=== PATIENT | male | born 1945 | race African-American/Black ===

== ENCOUNTER 2018-02-07 17:14 | Inpatient (IN) | payer MEDICARE, MEDICAID ==
[~2018-02-07] VITALS: Ht 182.9 cm; Wt 68.0 kg
[~2018-02-07 17:14] MED LIST: ATROPINE SULFAT15 ML OP; BRIMONIDINE TART5 ML LEFT EYE; COMBIGAN EYE DRO5 ML OP; COSOPT EYE DROP10 M1 OP; FOLIC ACID1 MG ORAL; LANTUS SOL100 UNIT/1 SUBQ; LISINOPRIL20 MG ORAL; METFORMIN HCL500 M1 ORAL; NEOMYCIN-POLY-7.5 M1 OP; NOVOLOG100 UNIT/3 SUBQ; OMEPRAZOLE20 M2 ORAL; TRAMADOL HCL50 MG ORAL
--- NOTE | 2018-02-07 17:24 | Emergency Room Report ---
History of Present Illness General Chief Complaint: Dyspnea/Respdistress Source: Patient, EMS Present Illness HPI 72-year-old male, unknown past medical history with the exception of recurrent chronic smoker, brought by EMS. EMS states that patient was found outside the half-way where his brother is residing. Patient was reportedly altered however EMS states that upon arrival patient was not altered. Patient found to have a cough. Also found to have high blood sugar and right wrist swelling. Patient is currently awake and alert, oriented 3 however is not providing much history. States that he hit his hand a while ago but does not know when. Also has had a terrible cough will not give details Allergies: Coded Allergies: NO KNOWN ALLERGIES (Unverified Allergy, Unknown, 02/07/18) Patient History Past Medical History: see triage record Past Surgical History: none Pertinent Family History: none Reviewed Nursing Documentation: PMH: Agreed; PSxH: Agreed Nursing Documentation-PMH Hx Hypertension: Yes Hx Diabetes: Yes Hx Cancer: No Hx Gastrointestinal Problems: No Hx Neurological Problems: No Review of Systems All Other Systems: negative except mentioned in HPI Physical Exam Vital Signs Date Time Temp Pulse Resp B/P (MAP) Pulse Ox O2 Delivery O2 Flow Rate FiO2 02/07/18 17:11 100.2 112 20 133/78 86 Room Air 100.2 Sp02 EP Interpretation: reviewed, normal General Appearance: alert, moderate distress, other - disheveled Head: normocephalic, atraumatic Eyes: bilateral eye normal inspection, bilateral eye PERRL, bilateral eye EOMI ENT: normal ENT inspection, normal pharynx, normal voice, moist mucus membranes Neck: normal inspection, full range of motion, supple Respiratory: respiratory distress, wheezing, expiration Cardiovascular #1: no edema, tachycardia Cardiovascular #2: 2+ radial (R), 2+ radial (L) Gastrointestinal: normal inspection, non tender, soft, non-distended, no guarding Genitourinary: no CVA tenderness Musculoskeletal: other - Right wrist with edema and erythema, has full range of motion, blanching, warm, tender to palpation Neurologic: oriented x3, other - moves all ext Psychiatric: other - poor historian/dementia Skin: normal inspection, normal color, no rash, warm/dry, well hydrated, normal turgor Medical Decision Making Diagnostic Impression: Primary Impression: Respiratory distress Additional Impressions: COPD (chronic obstructive pulmonary disease) Pneumonia Hyperglycemia Elevated troponin ER Course 72-year-old male found outside a half-way where his brother is residing, found to have a cough, right wrist swelling DDX: COPD exacerbation, ACS, pneumonia Right wrist contusion versus fracture Plan: IV access, cafeteria monitor, O2 nasal cannula, EKG, CXR obtain basic labs including blood gas, troponin, Duonebs, steroids, consider mag, X-ray right wrist and hand ER Course: Patient's respiratory status has been closely monitored in the ED. Patient has been treated with combivent x 3, steroids, antibiotics. IV mag sulfate patient repeatly refusing nebs, sleeping comfortably Dr Caban called, known patient to her, to admit to Dr Dixon and she will follow Disposition: Patient will be admitted to telemetry D/W hospitalist Dr Dixon Please note that this Emergency Department Report was dictated using [id number] organ assembler and checker technology software, occasionally this can lead to erroneous entry secondary to interpretation by the dictation equipment. EKG Diagnostic Results EP Interpretation: Yes Rate: Tachycardic Rhythm: NSR ST Segments: No acute changes ASA given to patient: No Rhythm Strip EP Interpretation: Yes Rate: 111 Rhythm: NSR, no PVCs, no ectopy Chest X-ray CXR: Ordered: Yes 1 view Indication: SOB EP interpretation: Yes Interpretation: R infiltrate Impression: R infiltrate Electronically signed by David Garcia MD Xray: Right wrist 3 view Indication: Pain EP Interpretation: Yes Interpretation: No dislocation, no soft tissue swelling, no fractures Impression: No acute disease Electronically signed by David Garcia MD Xray: Right hand 3 view Indication: Pain EP Interpretation: Yes Interpretation: No dislocation, no soft tissue swelling, no fractures Impression: No acute disease Electronically signed by David Garcia MD Laboratory Tests Test 02/07/18 17:16 02/07/18 18:00 White Blood Count 10.0 K/UL (4.8-10.8) Red Blood Count 3.22 M/UL (4.70-6.10) L Hemoglobin 7.7 G/DL (14.2-18.0) L Hematocrit 26.7 % (42.0-52.0) L Mean Corpuscular Volume 83 FL (80-99) Mean Corpuscular Hemoglobin 24.0 PG (27.0-31.0) L Mean Corpuscular Hemoglobin Concent 28.9 G/DL (32.0-36.0) L Red Cell Distribution Width 17.7 % (11.6-14.8) H Platelet Count 259 K/UL (150-450) Mean Platelet Volume 7.3 FL (6.5-10.1) Neutrophils (%) (Auto) 81.0 % (45.0-75.0) H Lymphocytes (%) (Auto) 13.9 % (20.0-45.0) L Monocytes (%) (Auto) 4.4 % (1.0-10.0) Eosinophils (%) (Auto) 0.2 % (0.0-3.0) Basophils (%) (Auto) 0.5 % (0.0-2.0) Arterial Blood pH 7.280 (7.350-7.450) Arterial Blood Partial Pressure CO2 66.0 mmHg (35.0-45.0) *H Arterial Blood Partial Pressure O2 86.1 mmHg (75.0-100.0) Arterial Blood HCO3 30.4 mmol/L (22.0-26.0) H Arterial Blood Oxygen Saturation 94.1 % (92.0-98.0) Arterial Blood Base Excess 2.8 South Test Positive Sodium Level 141 MMOL/L (136-145) Potassium Level 4.5 MMOL/L (3.5-5.1) Chloride Level 104 MMOL/L (98-107) Carbon Dioxide Level 29 MMOL/L (21-32) Anion Gap 8 mmol/L (5-15) Blood Urea Nitrogen 36 mg/dL (7-18) H Creatinine 1.4 MG/DL (0.55-1.30) H Estimate Glomerular Filtration Rate mL/min (>60) Glucose Level 226 MG/DL (74-106) H Lactic Acid Level 2.50 mmol/L (0.66-2.22) H Calcium Level 9.0 MG/DL (8.5-10.1) Total Bilirubin 0.3 MG/DL (0.2-1.0) Aspartate Amino Transferase (AST) 152 U/L (15-37) H Alanine Aminotransferase (ALT) 177 U/L (12-78) H Alkaline Phosphatase 130 U/L (46-116) H Troponin I 0.858 ng/mL (0.000-0.056) Pro-B-Type Natriuretic Peptide 9498 pg/mL (0-125) H Total Protein 7.8 G/DL (6.4-8.2) Albumin 3.0 G/DL (3.4-5.0) L Globulin 4.8 g/dL Albumin/Globulin Ratio 0.6 (1.0-2.7) L Acetone Level Negative (NEGATIVE) Urine Color Yellow Urine Appearance Slightly cloudy Urine pH 5 (4.5-8.0) Urine Specific [place] 1.020 (1.005-1.035) Urine Protein 4+ (NEGATIVE) H Urine Glucose (UA) Negative (NEGATIVE) Urine Ketones Negative (NEGATIVE) Urine Occult Blood 2+ (NEGATIVE) H Urine Nitrite Negative (NEGATIVE) Urine Bilirubin Negative (NEGATIVE) Urine Urobilinogen 1 MG/DL (0.0-1.0) H Urine Leukocyte Esterase 1+ (NEGATIVE) H Urine RBC 0-2 /HPF (0 - 0) H Urine WBC 0-2 /HPF (0 - 0) Urine Squamous Epithelial Cells Occasional /LPF Urine Bacteria Moderate /HPF (NONE) H Last Vital Signs Date Time Temp Pulse Resp B/P (MAP) Pulse Ox O2 Delivery O2 Flow Rate FiO2 02/07/18 17:11 100.2 112 20 133/78 86 Room Air 100.2 Disposition: ADMITTED INPATIENT Condition: Serious David Gracia M.D. Feb 07, 2018 17:23
[2018-02-07] MEDS ORDERED: Solu-MEDROL 125mg Inj IVP ONE (17:30)
[2018-02-07 17:52] LABS: HEMATOCRIT 26.7 % (42.0-52.0); HEMOGLOBIN 7.7 G/DL (14.2-18.0); MEAN CORPUSCULAR VOLUME 83 FL (80-99); PLATELET COUNT 259 K/UL (150-450); RED BLOOD COUNT 3.22 M/UL (4.70-6.10); RED CELL DISTRIBUTION WIDTH 17.7 % (11.6-14.8)
[2018-02-07] MEDS: Albuterol ud Inhalation HHN SCH ×3 (17:58→19:43)
[2018-02-07] MEDS: Ipratropium 0.02% Inh Soln 2.5ml UD HHN SCH ×3 (17:58→19:43)
[2018-02-07 18:00] VITALS: BP 130/65
[2018-02-07 18:00] LABS: LYMPHOCYTES % (AUTO) 13.9 % (20.0-45.0)
[2018-02-07 18:01] LABS: BASOPHILS % (AUTO) 0.5 % (0.0-2.0); EOSINOPHILS % (AUTO) 0.2 % (0.0-3.0); MONOCYTES % (AUTO) 4.4 % (1.0-10.0)
[2018-02-07 18:04] LABS: ANION GAP 8 mmol/L (5-15); BLOOD UREA NITROGEN 36 mg/dL (7-18); CARBON DIOXIDE 29 MMOL/L (21-32); CHLORIDE 104 MMOL/L (98-107); CREATININE 1.4 MG/DL (0.55-1.30); POTASSIUM 4.5 MMOL/L (3.5-5.1); SODIUM 141 MMOL/L (136-145)
[2018-02-07] MEDS ORDERED: Nitroglycerin Subl 0.4mg tab SL PRN (18:15)
[2018-02-07] MEDS ORDERED: LORazepam Inj 2mg/ml 1ml IV PRN (18:15)
[2018-02-07] MEDS ORDERED: Promethazine/Codeine 5ml UD ORAL PRN (18:15)
[2018-02-07] MEDS ORDERED: Morphine Sulfate 4mg/ml Inj IVP PRN (18:15)
[2018-02-07] MEDS ORDERED: Albuterol/Ipratropium 3ml neb HHN PRN (18:15)
[2018-02-07 18:18] LABS: ALANINE AMINOTRANSFERASE 177 U/L (12-78); ALBUMIN/GLOBULIN RATIO 0.6 (1.0-2.7); ALKALINE PHOSPHATASE 130 U/L (46-116); ASPARTATE AMINO TRANSFERASE 152 U/L (15-37); BILIRUBIN,TOTAL 0.3 MG/DL (0.2-1.0)
[2018-02-07 18:27] LABS: APPEARANCE,URINE SLIGHTLY CLOUDY; BILIRUBIN, URINE NEGATIVE (NEGATIVE); GLUCOSE, URINE (UA) NEGATIVE (NEGATIVE); KETONES,URINE NEGATIVE (NEGATIVE); LEUKOCYTE ESTERASE ,URINE 1+ (NEGATIVE); NITRITE,URINE NEGATIVE (NEGATIVE); PH,URINE 5 (4.5-8.0); PROTEIN,URINE 4+ (NEGATIVE); UROBILINOGEN,URINE 1 MG/DL (0.0-1.0)
[2018-02-07 18:29] LABS: COLOR,URINE YELLOW
[2018-02-07] MEDS ORDERED: Aspirin Baby 81mg ORAL ONE (19:00)
[2018-02-07 19:30] VITALS: BP 133/68
[2018-02-07 20:45] VITALS: BP 147/90
[2018-02-07] MEDS: Theophylline ER 100mg ORAL SCH (21:34)
[2018-02-07] MEDS: Heparin 5000 units/ml inj SUBQ SCH (21:38)
[2018-02-07] MEDS: NovoLOG Insulin Flexpen SUBQ SCH (21:39)
[2018-02-08] VITALS: BP 137/95
[2018-02-08] MEDS: Solu-MEDROL 125mg Inj IV SCH ×3 (00:03→11:35)
[2018-02-08 04:00] VITALS: BP 135/86
[2018-02-08] MEDS: NovoLOG Insulin Flexpen SUBQ SCH ×3 (06:13→16:30)
[2018-02-08] MEDS ORDERED: Lisinopril 20mg tab ORAL SCH (09:00)
[2018-02-08] MEDS: Heparin 5000 units/ml inj SUBQ SCH ×2 (09:00→09:08)
[2018-02-08 09:04] VITALS: BP 149/89
[2018-02-08 09:07] VITALS: BP 149/89
[2018-02-08] MEDS: Theophylline ER 100mg ORAL SCH (09:07)
--- NOTE | 2018-02-08 09:58 | Diagnostic Imaging Report ---
Indication: Pain Findings: 3 views of the right wrist were obtained. No acute fractures, malalignment, erosions or periostitis are identified. Soft tissues are unremarkable. Impression: No acute findings.
--- NOTE | 2018-02-08 09:59 | Diagnostic Imaging Report ---
Indication: pain Right hand pain Findings: 3 views of the right hand were obtained. Normal bony mineralization and alignment are demonstrated. No acute fractures, erosions, or periosteal reaction are seen. Soft tissues are unremarkable. Impression: No acute findings.
--- NOTE | 2018-02-08 09:59 | Diagnostic Imaging Report ---
Indication: Chest pain Comparison: None A single view chest radiograph was obtained. Findings: Suggestion of mild interstitial edema and centrally. Heart size is borderline enlarged. Bones are unremarkable. IMPRESSION: Query mild CHF
--- NOTE | 2018-02-08 12:37 | History and Physical ---
History of Present Illness General Date patient seen: Feb 08, 2018 Reason for Hospitalization: Dyspnea/Respdistress Present Illness HPI 72-year-old male, with hx of DM, HTN, psychiatric history, brought in by EMS. EMS states that patient was found outside the group home where his brother is residing. Patient was reportedly altered however EMS states that upon arrival patient was not altered. Patient found to have a cough. Also found to have high blood sugar and right wrist swelling. Allergies: Coded Allergies: NO KNOWN ALLERGIES (Unverified Allergy, Unknown, 02/07/18) Medication History Scheduled Atropine Sulfate (Atropine Sulfate), 5 ML OP BID, (Reported) Brimonidine Tartrate* (Alphagan*), 1 DROP LEFT EYE BID, (Reported) Brimonidine Tartrate/Timolol (Combigan Eye Drops), 5 ML OP BID, (Reported) Dorzolamide Hcl/Timolol Maleat (Cosopt Eye Drops), 10 ML OP BID, (Reported) Folic Acid* (Folic Acid*), 1 MG ORAL DAILY, (Reported) Insulin Aspart* (Novolog*), 8 UNITS SUBQ BEFORE MEALS, (Reported) Insulin Glargine (Lantus), 20 UNITS SUBQ BEDTIME, (Reported) Lisinopril (Lisinopril*), 20 MG ORAL DAILY, (Reported) Metformin Hcl* (Metformin Hcl*), 500 MG ORAL TID, (Reported) Neomycin/Polymyxin B Sulf/Hc (Orvzzcyr-Yviw-Eg Eye Drops), 5 ML OP BID, ( Reported) Omeprazole (Omeprazole), 20 MG ORAL DAILY, (Reported) Tramadol Hcl* (Ultram*), 50 MG ORAL Q6H, (Reported) Patient History Healthcare decision maker Resuscitation status Full Code Advanced Directive on File No Past Medical/Surgical History Past Medical/Surgical History: (1) COPD (chronic obstructive pulmonary disease) (2) Diabetes mellitus (3) Hypertension Review of Systems Respiratory: Reports: cough All Other Systems: negative except mentioned in HPI Physical Exam General Appearance: cachetic Lines, tubes and drains: peripheral HEENT: normocephalic, atraumatic Neck: non-tender, normal alignment Respiratory/Chest: chest wall non-tender, lungs clear Breasts: no masses Cardiovascular/Chest: normal peripheral pulses, normal rate Abdomen: normal bowel sounds, non tender Genitourinary/Rectal: normal genital exam, normal rectal exam Extremities: normal range of motion Last 24 Hour Vital Signs Date Time Temp Pulse Resp B/P (MAP) Pulse Ox O2 Delivery O2 Flow Rate FiO2 02/08/18 10:30 100 19 Nasal Cannula 2.0 28 02/08/18 09:07 149/89 02/08/18 09:04 97.9 102 20 149/89 96 Nasal Cannula 2.0 97.9 02/08/18 08:00 102 02/08/18 04:00 102 02/08/18 04:00 97.0 96 21 135/86 91 Nasal Cannula 2.0 97.0 02/08/18 00:00 97 02/08/18 00:00 97.0 97 21 137/95 95 Nasal Cannula 2.0 97.0 02/07/18 20:45 99.0 99 20 147/90 91 Nasal Cannula 2.0 99.0 02/07/18 20:43 101 02/07/18 20:20 100.2 101 19 130/65 100 Nasal Cannula 2.0 28 100.2 02/07/18 20:11 101 19 Nasal Cannula 2.0 28 02/07/18 20:10 102 19 100 Nasal Cannula 2.0 28 02/07/18 20:09 102 19 100 Nasal Cannula 2.0 28 02/07/18 20:09 102 19 100 Nasal Cannula 2.0 28 02/07/18 19:44 101 19 100 Nasal Cannula 2.0 28 02/07/18 19:41 100 19 100 Nasal Cannula 2.0 28 02/07/18 19:38 99 20 99 Nasal Cannula 2.0 28 02/07/18 19:30 99.8 105 21 133/68 98 Nasal Cannula 2.0 99.8 02/07/18 18:00 101 21 130/65 97 Nasal Cannula 2.0 02/07/18 17:29 Nasal Cannula 2.0 02/07/18 17:11 100.2 112 20 133/78 86 Room Air 100.2 Intake and Output 02/07/18 02/08/18 19:00 07:00 Intake Total 340 ml Output Total 100 ml 500 ml Balance -100 ml -160 ml IV Total 100 ml Other 240 ml Output Urine Total 100 ml 500 ml # Voids 1 2 Laboratory Tests Test 02/07/18 17:16 02/07/18 18:00 02/07/18 19:50 White Blood Count 10.0 K/UL (4.8-10.8) Red Blood Count 3.22 M/UL (4.70-6.10) L Hemoglobin 7.7 G/DL (14.2-18.0) L Hematocrit 26.7 % (42.0-52.0) L Mean Corpuscular Volume 83 FL (80-99) Mean Corpuscular Hemoglobin 24.0 PG (27.0-31.0) L Mean Corpuscular Hemoglobin Concent 28.9 G/DL (32.0-36.0) L Red Cell Distribution Width 17.7 % (11.6-14.8) H Platelet Count 259 K/UL (150-450) Mean Platelet Volume 7.3 FL (6.5-10.1) Neutrophils (%) (Auto) 81.0 % (45.0-75.0) H Lymphocytes (%) (Auto) 13.9 % (20.0-45.0) L Monocytes (%) (Auto) 4.4 % (1.0-10.0) Eosinophils (%) (Auto) 0.2 % (0.0-3.0) Basophils (%) (Auto) 0.5 % (0.0-2.0) Arterial Blood pH 7.280 (7.350-7.450) Arterial Blood Partial Pressure CO2 66.0 mmHg (35.0-45.0) *H Arterial Blood Partial Pressure O2 86.1 mmHg (75.0-100.0) Arterial Blood HCO3 30.4 mmol/L (22.0-26.0) H Arterial Blood Oxygen Saturation 94.1 % (92.0-98.0) Arterial Blood Base Excess 2.8 South Test Positive Sodium Level 141 MMOL/L (136-145) Potassium Level 4.5 MMOL/L (3.5-5.1) Chloride Level 104 MMOL/L (98-107) Carbon Dioxide Level 29 MMOL/L (21-32) Anion Gap 8 mmol/L (5-15) Blood Urea Nitrogen 36 mg/dL (7-18) H Creatinine 1.4 MG/DL (0.55-1.30) H Estimat Glomerular Filtration Rate mL/min (>60) Glucose Level 226 MG/DL (74-106) H Lactic Acid Level 2.50 mmol/L (0.66-2.22) H 0.80 mmol/L (0.66-2.22) Calcium Level 9.0 MG/DL (8.5-10.1) Total Bilirubin 0.3 MG/DL (0.2-1.0) Aspartate Amino Transf (AST/SGOT) 152 U/L (15-37) H Alanine Aminotransferase (ALT/SGPT) 177 U/L (12-78) H Alkaline Phosphatase 130 U/L (46-116) H Troponin I 0.858 ng/mL (0.000-0.056) Pro-B-Type Natriuretic Peptide 9498 pg/mL (0-125) H Total Protein 7.8 G/DL (6.4-8.2) Albumin 3.0 G/DL (3.4-5.0) L Globulin 4.8 g/dL Albumin/Globulin Ratio 0.6 (1.0-2.7) L Acetone Level Negative (NEGATIVE) Urine Color Yellow Urine Appearance Slightly cloudy Urine pH 5 (4.5-8.0) Urine Specific [place] 1.020 (1.005-1.035) Urine Protein 4+ (NEGATIVE) H Urine Glucose (UA) Negative (NEGATIVE) Urine Ketones Negative (NEGATIVE) Urine Occult Blood 2+ (NEGATIVE) H Urine Nitrite Negative (NEGATIVE) Urine Bilirubin Negative (NEGATIVE) Urine Urobilinogen 1 MG/DL (0.0-1.0) H Urine Leukocyte Esterase 1+ (NEGATIVE) H Urine RBC 0-2 /HPF (0 - 0) H Urine WBC 0-2 /HPF (0 - 0) Urine Squamous Epithelial Cells Occasional /LPF Urine Bacteria Moderate /HPF (NONE) H Microbiology Date/Time Source Procedure Growth Status 02/07/18 18:00 Urine,Clean Catch Urine Culture - Preliminary NO GROWTH Resulted Height (Feet): 6 Height (Inches): 0.00 Weight (Pounds): 150 Medications Current Medications Medications (Trade) Dose Ordered Sig/Alison Route PRN Reason Start Time Stop Time Status Last Admin Dose Admin Acetaminophen (Tylenol) 650 mg Q4H PRN ORAL fever 02/07/18 18:15 03/09/18 18:14 Albuterol/ Ipratropium (Albuterol/ Ipratropium) 3 ml Q4H PRN HHN dyspnea 02/07/18 18:15 02/12/18 18:14 Atropine Sulfate (Atropine Opth Maren) 1 drop BID BOTH EYES 02/07/18 21:00 03/09/18 20:59 02/07/18 21:43 Clonidine HCl (Catapres Tab) 0.1 mg Q4H PRN ORAL sbp more than 160 02/07/18 18:15 03/09/18 18:14 Dextrose (Dextrose 50%) 25 ml STAT PRN IV Hypoglycemia 02/07/18 18:15 03/09/18 18:14 Dextrose (Dextrose 50%) 50 ml STAT PRN IV Hypoglycemia 02/07/18 18:15 03/09/18 18:14 Heparin Sodium (Porcine) (Heparin 5000 units/ml) 5,000 units EVERY 12 HOURS SUBQ 02/07/18 21:00 03/09/18 20:59 02/07/18 21:38 Insulin Aspart (NovoLOG) BEFORE MEALS AND HS SUBQ 02/07/18 21:00 03/09/18 20:59 02/08/18 11:36 Lisinopril (Prinivil) 20 mg DAILY ORAL 02/08/18 09:00 03/10/18 08:59 02/08/18 09:07 Lorazepam (Ativan 2mg/ml 1ml) 0.5 mg Q4H PRN IV For Anxiety 02/07/18 18:15 02/14/18 18:14 Methylprednisolone Sodium Succinate (Solu-MEDROL) 60 mg EVERY 6 HOURS IV 02/08/18 00:00 03/10/18 00:00 02/08/18 11:35 Morphine Sulfate (Morphine Sulfate) 2 mg Q4H PRN IVP severe pain 7-10 02/07/18 18:15 02/14/18 18:14 Nitroglycerin (Ntg) 0.4 mg Q5M X 3 DOSES PRN SL Prn Chest Pain 02/07/18 18:15 03/09/18 18:14 Ondansetron HCl (Zofran) 4 mg Q6H PRN IVP Nausea & Vomiting 02/07/18 18:15 03/09/18 18:14 Promethazine HCl/ Codeine (Phenergan with Codeine) 5 ml Q6H PRN ORAL cough 02/07/18 18:15 03/09/18 18:14 02/08/18 04:13 Temazepam (Restoril) 15 mg HSPRN PRN ORAL Insomnia 02/07/18 18:15 02/14/18 18:14 Theophylline ([place]) 100 mg EVERY 12 HOURS ORAL 02/07/18 21:00 03/09/18 20:59 02/08/18 09:07 Assessment/Plan Problem List: (1) Acute respiratory failure ICD Codes: J96.00 - Acute respiratory failure, unspecified whether with hypoxia or hypercapnia SNOMED: 54462451 (2) COPD exacerbation ICD Codes: J44.1 - Chronic obstructive pulmonary disease with (acute) exacerbation SNOMED: 071475549 (3) Hyperglycemia ICD Codes: R73.9 - Hyperglycemia, unspecified SNOMED: 69062405 (4) Hypertension ICD Codes: I10 - Essential (primary) hypertension SNOMED: 80094800 (5) Diabetes mellitus ICD Codes: E11.9 - Type 2 diabetes mellitus without complications SNOMED: 90975721 Assessment/Plan respiratory treatment iv abx. iv sterids check sputum chest PT sliding scale diabetic diet Josue Dixon MD Feb 08, 2018 12:37
--- NOTE | 2018-02-08 18:50 | Consultation ---
History of Present Illness General Date patient seen: Feb 08, 2018 Chief Complaint: Dyspnea/Respdistress Present Illness HPI 72-year-old male, with hx of DM, HTN, schizophrenia, brought in by EMS. the pt has poor insight and was somewhat uncooperative. the pt has poor cognition. I am well familiar with this pt and he has dementia in addition to his other medical issues. the pt has history of noncompliance. the pt is unable to be engaged and answer the questions. the pt is unable to appreciate nor process the info was given to him. Allergies: Coded Allergies: NO KNOWN ALLERGIES (Unverified Allergy, Unknown, 02/07/18) Medication History Scheduled Atropine Sulfate (Atropine Sulfate), 5 ML OP BID, (Reported) Brimonidine Tartrate* (Alphagan*), 1 DROP LEFT EYE BID, (Reported) Brimonidine Tartrate/Timolol (Combigan Eye Drops), 5 ML OP BID, (Reported) Dorzolamide Hcl/Timolol Maleat (Cosopt Eye Drops), 10 ML OP BID, (Reported) Folic Acid* (Folic Acid*), 1 MG ORAL DAILY, (Reported) Insulin Aspart* (Novolog*), 8 UNITS SUBQ BEFORE MEALS, (Reported) Insulin Glargine (Lantus), 20 UNITS SUBQ BEDTIME, (Reported) Lisinopril (Lisinopril*), 20 MG ORAL DAILY, (Reported) Metformin Hcl* (Metformin Hcl*), 500 MG ORAL TID, (Reported) Neomycin/Polymyxin B Sulf/Hc (Erauyxdn-Gflc-Zi Eye Drops), 5 ML OP BID, ( Reported) Omeprazole (Omeprazole), 20 MG ORAL DAILY, (Reported) Tramadol Hcl* (Ultram*), 50 MG ORAL Q6H, (Reported) Patient History Limited by: medical condition History Provided By: Patient, Medical Record, PMD Healthcare decision maker Resuscitation status Full Code Advanced Directive on File No Past Medical/Surgical History Past Medical/Surgical History: (1) Diabetes mellitus (2) Hypertension (3) Acute respiratory failure (4) COPD exacerbation (5) Severe anemia (6) ATN (acute tubular necrosis) Review of Systems Psychiatric: Reports: prior hx, anxiety, depressed feelings, emotional problems Physical Exam General Appearance: no apparent distress, alert Neurologic: responsive, depressed affect Last 24 Hour Vital Signs Date Time Temp Pulse Resp B/P (MAP) Pulse Ox O2 Delivery O2 Flow Rate FiO2 02/08/18 12:00 107 02/08/18 10:30 100 19 Nasal Cannula 2.0 28 02/08/18 09:07 149/89 02/08/18 09:04 97.9 102 20 149/89 96 Nasal Cannula 2.0 97.9 02/08/18 08:00 102 02/08/18 04:00 102 02/08/18 04:00 97.0 96 21 135/86 91 Nasal Cannula 2.0 97.0 02/08/18 00:00 97 02/08/18 00:00 97.0 97 21 137/95 95 Nasal Cannula 2.0 97.0 02/07/18 20:45 99.0 99 20 147/90 91 Nasal Cannula 2.0 99.0 02/07/18 20:43 101 02/07/18 20:20 100.2 101 19 130/65 100 Nasal Cannula 2.0 28 100.2 02/07/18 20:11 101 19 Nasal Cannula 2.0 28 02/07/18 20:10 102 19 100 Nasal Cannula 2.0 28 02/07/18 20:09 102 19 100 Nasal Cannula 2.0 28 02/07/18 20:09 102 19 100 Nasal Cannula 2.0 28 02/07/18 19:44 101 19 100 Nasal Cannula 2.0 28 02/07/18 19:41 100 19 100 Nasal Cannula 2.0 28 02/07/18 19:38 99 20 99 Nasal Cannula 2.0 28 02/07/18 19:30 99.8 105 21 133/68 98 Nasal Cannula 2.0 99.8 Intake and Output 02/07/18 02/08/18 19:00 07:00 Intake Total 340 ml Output Total 100 ml 500 ml Balance -100 ml -160 ml IV Total 100 ml Other 240 ml Output Urine Total 100 ml 500 ml # Voids 1 2 Laboratory Tests Test 02/07/18 19:50 Lactic Acid Level 0.80 mmol/L (0.66-2.22) Height (Feet): 6 Height (Inches): 0.00 Weight (Pounds): 150 Assessment/Plan Assessment/Plan schizophrenia dementia the pt lacks capacity to leave ama. the pt will be restarted on meds the pt needs placement. Calvin Caban M.D. Feb 08, 2018 18:50
--- NOTE | 2018-02-09 10:37 | Discharge Summary ---
Discharge Summary Discharge Summary Discharge Summary DATE OF ADMISSION: 02/07/2018 DATE OF SIGNING AGAINST MEDICAL ADVISE: 02/08/2018 REASON FOR ADMISSION: 72 years old male with a history of diabetes,hypertension , active smoker, COPD , psychiatric history was brought by paramedics. Patient was found outside of the nursing facility, where his brother resides. Patient apparently was confused per report, however paramedics stated that upon arrival patient was not confused. Patient was found to have cough. Patient also found to have hyperglycemia. Patient complained of right wrist swelling. Patient had low- grade fever- 100.2 tachycardia- 112, EKG revealed sinus tachycardia, no acute ischemic changes. Pulse oximetry was only 86% on room air. Patient was placed on supplemental oxygen to keep pulse oximetry above 92%. Chest X-ray revealed borderline enlarged heart. Suggestion of mild interstitial edema, likely mild CHF. Right wrist x-ray revealed no acute findings. Right hand x-ray revealed no acute findings. No leukocytosis. with +4 protein and moderate bacteria, but no pyuria. Glucose -226. Elevated liver enzymes. Patient was admitted for acute respiratory failure, COPD exacerbation, elevated troponin , hyperglycemia, hypertension, diabetes. CONSULTANTS: psychiatrist [facility]SE: Patient admitted to monitored floor. Supplemental oxygen provided to keep pulse oximetry above 92%. Pulmonary toilet with bronchodilator and chest physiotherapy. Patient was started on intravenous steroids. Trial of theophylline was started. Antitussive provided as needed. Patient was started on empiric antibiotics. Sputum culture was ordered. Patient was counseled on smoking cessation. Patient declined Nicotine patch. Patient was started on diabetic diet . Blood sugar was managed with sliding scale of insulin. DVT prophylaxis provided. Blood pressure was managed with BR[place] inhibitor. Psychiatric evaluation was requested. Psychiatrist diagnosed patient with schizophrenia and dementia. Psychiatrist optimized psychiatric medication regimen. Patient refused all care, including refusal of medication. Patient decided to leave against medical advice. The risk and consequences of signing AGAINST MEDICAL ADVICE were discussed with patient in detail. Patient verbalized understanding, nevertheless signed AMA form and left. FINAL DIAGNOSES: Acute respiratory failure. COPD exacerbation. Hyperglycemia. Hypertension. Diabetes. Schizophrenia. Dementia. Elevated troponin I have been assigned to dictate discharge summary for this account. I was not involved in the patient's management. Carmen Wick NP ([place]) Feb 09, 2018 10:37
== END 2018-02-08 16:21 | disposition left against medical advice (07) | DRG 189 ==
LOC: EDBD 17:14 → EMR 18:03 → 2E 18:07 → EDBEDREQ 18:16 → 2E 02-08 04:54
DX: J96.00 Acute respiratory failure, unspecified whether with hypoxia or hypercapnia (principal); J44.1 Chronic obstructive pulmonary disease with (acute) exacerbation; E11.65 Type 2 diabetes mellitus with hyperglycemia; I10 Essential (primary) hypertension; F20.9 Schizophrenia, unspecified; F03.90 Unspecified dementia, unspecified severity, without behavioral disturbance, psychotic disturbance, mood disturbance, and anxiety; R74.8 Abnormal levels of other serum enzymes; Z53.20 Procedure and treatment not carried out because of patient's decision for unspecified reasons; S69.90XA Unspecified injury of unspecified wrist, hand and finger(s), initial encounter; X58.XXXA Exposure to other specified factors, initial encounter
CPT/HCPCS: 36415; 36600; 71045; 80053; 81003; 82009; 82803; 82962; 83605; 83880; 84484; 85025; 87040; 87081; 87086; 93005; 94640; 94664; J1815

== ENCOUNTER 2018-04-10 14:25 | Inpatient (IN) | payer MEDICARE, MEDICAID ==
[~2018-04-10] VITALS: Ht 182.9 cm
--- NOTE | 2018-04-10 14:36 | Emergency Room Report ---
History of Present Illness General Chief Complaint: Behavioral Complaint Source: EMS Present Illness HPI Patient is brought in by EMS. He has a history of COPD. [facility] at the [facility] facility. His oxygen saturation was 88% when EMS arrived. They placed him on oxygen his oxygen saturation went up to 95%. The patient is only response to his name at this time. Aside from records that came with the patient no further history is available at this time. Allergies: Coded Allergies: NO KNOWN ALLERGIES (Unverified Allergy, Unknown, 02/07/18) Patient History Limited by: medical condition Past Medical History: see triage record Social History: Reports: smoking - prior, alcohol use Social History Narrative [facility] facility Reviewed Nursing Documentation: PMH: Agreed; PSxH: Agreed Nursing Documentation-PMH Hx Cardiac Problems: Yes - CHF Hx Hypertension: Yes Hx COPD: Yes Hx Diabetes: Yes Hx Cancer: No Hx Gastrointestinal Problems: No Hx Neurological Problems: No Review of Systems All Other Systems: limited Physical Exam Vital Signs Date Time Temp Pulse Resp B/P (MAP) Pulse Ox O2 Delivery O2 Flow Rate FiO2 04/10/18 14:21 97.6 95 18 121/70 95 Nasal Cannula 2.0 97.5 Sp02 EP Interpretation: reviewed, abnormal - interpreted by me as low General Appearance: lethargic, other - Response to pain Head: normocephalic Eyes: bilateral eye PERRL ENT: moist mucus membranes - poor dentition Neck: supple Respiratory: decreased breath sounds, wheezing, expiration, other - Decreased tidal volume Cardiovascular #1: regular rate, rhythm Cardiovascular #2: 2+ radial (L) Gastrointestinal: non tender, soft, decreased bowel sounds, scaphoid Genitourinary: no CVA tenderness Musculoskeletal: back normal, digits/nails normal Neurologic: responsive - Today, motor strength/tone normal, sensory intact, motor weakness Psychiatric: depressed affect Skin: warm/dry, cyanosis Medical Decision Making Diagnostic Impression: Primary Impression: Behavioral change Additional Impressions: Elevated troponin Hypoxia CHF (congestive heart failure) Qualified Codes: I50.43 - Acute on chronic combined systolic (congestive) and diastolic (congestive) heart failure ER Course Patient presents with altered mentation and hypoxia. Differential includes respiratory failure, pneumonia, COPD exacerbation amongst others. Apparently he had behavioral issues and was given Ativan at the [facility]. This may be contributing to his respiratory status. Evaluation will be with EKG , chest x-ray and labs including blood cultures and lactate. He'll be treated with albuterol and Atrovent and Solu-Medrol. We will be assessing his respiratory status with a blood gas. Patient somewhat more alert with observation. Refusing breathing treatment. EKG without injury. CXR with CHF vs infiltrates. Called with + troponin. Aspirin ordered. Improved mentation. Still lethargic and not following commands. Admit SDU Dr. Dixon. Laboratory Tests Test 04/10/18 14:31 04/10/18 15:06 Arterial Blood pH 7.350 (7.350-7.450) Arterial Blood Partial Pressure CO2 49.9 mmHg (35.0-45.0) H Arterial Blood Partial Pressure O2 70.6 mmHg (75.0-100.0) L Arterial Blood HCO3 27.5 mmol/L (22.0-26.0) H Arterial Blood Oxygen Saturation 90.8 % (92.0-98.0) L Arterial Blood Base Excess 1.6 South Test Positive White Blood Count 7.4 K/UL (4.8-10.8) Red Blood Count 3.64 M/UL (4.70-6.10) L Hemoglobin 8.4 G/DL (14.2-18.0) L Hematocrit 27.8 % (42.0-52.0) L Mean Corpuscular Volume 76 FL (80-99) L Mean Corpuscular Hemoglobin 23.0 PG (27.0-31.0) L Mean Corpuscular Hemoglobin Concent 30.1 G/DL (32.0-36.0) L Red Cell Distribution Width 20.5 % (11.6-14.8) H Platelet Count 241 K/UL (150-450) Mean Platelet Volume 8.0 FL (6.5-10.1) Neutrophils (%) (Auto) 63.7 % (45.0-75.0) Lymphocytes (%) (Auto) 22.1 % (20.0-45.0) Monocytes (%) (Auto) 9.5 % (1.0-10.0) Eosinophils (%) (Auto) 3.3 % (0.0-3.0) H Basophils (%) (Auto) 1.5 % (0.0-2.0) Prothrombin Time 11.7 SEC (9.30-11.50) H Prothrombin Time INR 1.1 (0.9-1.1) PTT 27 SEC (23-33) Sodium Level 142 MMOL/L (136-145) Potassium Level 3.6 MMOL/L (3.5-5.1) Chloride Level 106 MMOL/L (98-107) Carbon Dioxide Level 27 MMOL/L (21-32) Anion Gap 9 mmol/L (5-15) Blood Urea Nitrogen 25 mg/dL (7-18) H Creatinine 1.1 MG/DL (0.55-1.30) Estimate Glomerular Filtration Rate mL/min (>60) Glucose Level 129 MG/DL (74-106) H Lactic Acid Level 1.00 mmol/L (0.4-2.0) Calcium Level 8.9 MG/DL (8.5-10.1) Total Bilirubin 0.5 MG/DL (0.2-1.0) Aspartate Amino Transferase (AST) 42 U/L (15-37) H Alanine Aminotransferase (ALT) 38 U/L (12-78) Alkaline Phosphatase 58 U/L (46-116) Total Creatine Kinase 708 U/L (26-308) H Troponin I 0.062 ng/mL (0.000-0.056) Pro-B-Type Natriuretic Peptide 623 pg/mL (0-125) H Total Protein 7.0 G/DL (6.4-8.2) Albumin 2.9 G/DL (3.4-5.0) L Globulin 4.1 g/dL Albumin/Globulin Ratio 0.7 (1.0-2.7) L EKG Diagnostic Results Rate: normal Rhythm: NSR ST Segments: no acute changes Rhythm Strip Diag. Results EP Interpretation: yes Rhythm: NSR, no PVC's, no ectopy Chest X-Ray Diagnostic Results Chest X-Ray Diagnostic Results : Chest X-Ray Ordered: Yes # of Views/Limited/Complete: 1 View Indication: Other EP Interpretation: Yes Interpretation: no effusion, no pneumothorax, other - inc cor and possible CHF vs infiltrates Impression: Other Electronically Signed by: Juan C Lim MD Last Vital Signs Date Time Temp Pulse Resp B/P (MAP) Pulse Ox O2 Delivery O2 Flow Rate FiO2 04/11/18 00:00 97.0 62 20 107/90 96 Nasal Cannula 2.0 28 97.0 Status: improved Disposition: ADMITTED INPATIENT Condition: Serious Juan C Lim M.D. Apr 10, 2018 14:36
[2018-04-10] MEDS ORDERED: Ipratropium 0.02% Inh Soln 2.5ml UD HHN ONE (14:45)
[2018-04-10] MEDS ORDERED: Albuterol ud Inhalation HHN ONE (14:45)
[2018-04-10] MEDS ORDERED: Solu-MEDROL 125mg Inj IVP ONE (14:45)
[2018-04-10 14:50] VITALS: BP 121/70
[2018-04-10 15:32] LABS: BASOPHILS % (AUTO) 1.5 % (0.0-2.0); EOSINOPHILS % (AUTO) 3.3 % (0.0-3.0); HEMATOCRIT 27.8 % (42.0-52.0); HEMOGLOBIN 8.4 G/DL (14.2-18.0); INR 1.1 (0.9-1.1); LYMPHOCYTES % (AUTO) 22.1 % (20.0-45.0); MEAN CORPUSCULAR VOLUME 76 FL (80-99); MONOCYTES % (AUTO) 9.5 % (1.0-10.0); NEUTROPHILS % (AUTO) 63.7 % (45.0-75.0); PLATELET COUNT 241 K/UL (150-450); RED BLOOD COUNT 3.64 M/UL (4.70-6.10); RED CELL DISTRIBUTION WIDTH 20.5 % (11.6-14.8); WHITE BLOOD COUNT 7.4 K/UL (4.8-10.8)
[2018-04-10] MEDS ORDERED: Nitroglycerin 2% oint pkt TOPIC ONE (15:45)
[2018-04-10 15:51] LABS: ANION GAP 9 mmol/L (5-15); BLOOD UREA NITROGEN 25 mg/dL (7-18); CALCIUM 8.9 MG/DL (8.5-10.1); CARBON DIOXIDE 27 MMOL/L (21-32); CHLORIDE 106 MMOL/L (98-107); CREATININE 1.1 MG/DL (0.55-1.30); POTASSIUM 3.6 MMOL/L (3.5-5.1); SODIUM 142 MMOL/L (136-145)
[2018-04-10 16:03] LABS: ALANINE AMINOTRANSFERASE 38 U/L (12-78); ALBUMIN 2.9 G/DL (3.4-5.0); ALBUMIN/GLOBULIN RATIO 0.7 (1.0-2.7); ALKALINE PHOSPHATASE 58 U/L (46-116); ASPARTATE AMINO TRANSFERASE 42 U/L (15-37); BILIRUBIN,TOTAL 0.5 MG/DL (0.2-1.0); CREATINE KINASE 708 U/L (26-308)
[2018-04-10 16:30] VITALS: BP 132/77
--- NOTE | 2018-04-10 16:30 | Diagnostic Imaging Report ---
EXAM: XR Chest, 1 View CLINICAL HISTORY: ALOC TECHNIQUE: Frontal view of the chest. COMPARISON: No relevant prior studies available. FINDINGS: Lungs: Diffusely increased interstitial markings. No focal consolidation. Pleural space: Unremarkable. No pneumothorax. Heart: Cardiomegaly. Mediastinum: Unremarkable. Bones/joints: Unremarkable. IMPRESSION: 1. Diffusely increased interstitial markings. This may be related to pulmonary vascular congestion versus interstitial pneumonitis. 2. Cardiomegaly.
[2018-04-10 19:47] VITALS: BP 128/74
[2018-04-10] MEDS ORDERED: DULCOLAX10 MG RC (19:49)
[2018-04-10] MEDS ORDERED: CATAPRES0.1 MG ORAL (19:49)
[2018-04-10] MEDS ORDERED: CRANBERRY450 M4 PO (19:49)
[2018-04-10] MEDS ORDERED: ATORVASTATIN CA10 MG ORAL (19:49)
[2018-04-10] MEDS ORDERED: FAMOTIDINE20 MG ORAL (19:49)
[2018-04-10] MEDS ORDERED: AMLODIPINE BESY10 MG ORAL (19:49)
[2018-04-10] MEDS ORDERED: ALBUTEROL2.5 MG/3 M INH (19:49)
[2018-04-10] MEDS ORDERED: COLACE100 MG ORAL (19:49)
[2018-04-10] MEDS ORDERED: MILK OF MA400 MG/51 ORAL (20:01)
[2018-04-10] MEDS ORDERED: FERROUS SULFAT325 MG ORAL (20:01)
[2018-04-10] MEDS ORDERED: ACETAMINOPHEN325 M1 ORAL (20:01)
[2018-04-10] MEDS ORDERED: Albuterol ud Inhalation IN-LINE PRN (20:15)
[2018-04-10] MEDS ORDERED: LORazepam Inj 2mg/ml 1ml IV PRN (20:15)
[2018-04-10] MEDS ORDERED: Miralax 17gm pkt ORAL PRN (20:15)
[2018-04-10] MEDS ORDERED: Mylanta II UD 30ml ORAL PRN (20:15)
[2018-04-10 20:30] VITALS: BP 125/72
[2018-04-10 20:42] LABS: APPEARANCE,URINE SLIGHTLY CLOUDY; BILIRUBIN, URINE NEGATIVE (NEGATIVE); COLOR,URINE AMBER; GLUCOSE, URINE (UA) NEGATIVE (NEGATIVE); KETONES,URINE 2+ (NEGATIVE); LEUKOCYTE ESTERASE ,URINE 1+ (NEGATIVE); NITRITE,URINE NEGATIVE (NEGATIVE); PH,URINE 5 (4.5-8.0); PROTEIN,URINE 4+ (NEGATIVE); UROBILINOGEN,URINE NORMAL MG/DL (0.0-1.0)
[2018-04-10] MEDS ORDERED: Zolpidem 5mg tab ORAL PRN (21:00)
[2018-04-10] MEDS: Heparin 5000 units/ml inj SUBQ SCH (22:06)
[2018-04-10] MEDS: NovoLOG Insulin Flexpen SUBQ SCH (22:07)
[2018-04-11] VITALS: BP 107/90
[2018-04-11 04:00] VITALS: BP 120/79
[2018-04-11] MEDS: NovoLOG Insulin Flexpen SUBQ SCH ×4 (06:09→21:00)
[2018-04-11 07:08] LABS: BASOPHILS % (AUTO) 0.3 % (0.0-2.0); HEMATOCRIT 31.1 % (42.0-52.0); HEMOGLOBIN 9.4 G/DL (14.2-18.0); LYMPHOCYTES % (AUTO) 15.3 % (20.0-45.0); MEAN CORPUSCULAR VOLUME 75 FL (80-99); MONOCYTES % (AUTO) 3.1 % (1.0-10.0); NEUTROPHILS % (AUTO) 81.3 % (45.0-75.0); PLATELET COUNT 283 K/UL (150-450); RED BLOOD COUNT 4.15 M/UL (4.70-6.10); RED CELL DISTRIBUTION WIDTH 20.6 % (11.6-14.8); WHITE BLOOD COUNT 7.7 K/UL (4.8-10.8)
[2018-04-11 07:31] LABS: ALANINE AMINOTRANSFERASE 40 U/L (12-78); ALBUMIN 2.9 G/DL (3.4-5.0); ALBUMIN/GLOBULIN RATIO 0.6 (1.0-2.7); ALKALINE PHOSPHATASE 64 U/L (46-116); ANION GAP 9 mmol/L (5-15); ASPARTATE AMINO TRANSFERASE 40 U/L (15-37); BILIRUBIN,TOTAL 0.4 MG/DL (0.2-1.0); BLOOD UREA NITROGEN 35 mg/dL (7-18); CALCIUM 8.8 MG/DL (8.5-10.1); CARBON DIOXIDE 27 MMOL/L (21-32); CHLORIDE 105 MMOL/L (98-107); CHOLESTEROL 142 MG/DL (< 200); CREATININE 1.2 MG/DL (0.55-1.30); HDL CHOLESTEROL 97 MG/DL (40-60); POTASSIUM 4.3 MMOL/L (3.5-5.1); SODIUM 141 MMOL/L (136-145); TRIGLYCERIDES 19 MG/DL (30-150)
[2018-04-11 08:00] VITALS: BP 99/64
--- NOTE | 2018-04-11 08:17 | Consultation ---
History of Present Illness General Date patient seen: Apr 10, 2018 Chief Complaint: Behavioral Complaint Present Illness HPI 72-year-old male with past medical history hypertension, COPD, schizophrenia and agitation who was admitted for ams. the pt was aggressive and agitated. the pt has poor insight and memory impairment. the pt received IM shot in [facility] prior admission as well as in er. his troponin was high therefore he was admitted for medical stabilization. he was aggressive and wanted to leave [facility]a. the ot lacks capacity and may not leave ama Allergies: Coded Allergies: NO KNOWN ALLERGIES (Unverified Allergy, Unknown, 02/07/18) Medication History Scheduled Amlodipine Besylate* (Amlodipine Besylate*), 10 MG ORAL DAILY, (Reported) Atorvastatin Calcium* (Lipitor*), 10 MG ORAL BEDTIME, (Reported) Atropine Sulfate (Atropine Sulfate), 5 ML OP BID, (Reported) Brimonidine Tartrate* (Alphagan*), 1 DROP LEFT EYE BID, (Reported) Brimonidine Tartrate/Timolol (Combigan Eye Drops), 5 ML OP BID, (Reported) Clonidine Hcl* (Catapres*), 0.1 MG ORAL EVERY 6 HOURS, (Reported) Cranberry Fruit Concentrate (Cranberry), 450 MG PO DAILY, (Reported) Docusate Sodium* (Colace*), 100 MG ORAL DAILY, (Reported) Dorzolamide Hcl/Timolol Maleat (Cosopt Eye Drops), 10 ML OP BID, (Reported) Famotidine (Famotidine), 20 MG ORAL DAILY, (Reported) Ferrous Sulfate* (Ferrous Sulfate*), 325 MG ORAL THREE TIMES A DAY, (Reported) Folic Acid* (Folic Acid*), 1 MG ORAL DAILY, (Reported) Insulin Aspart* (Novolog*), 8 UNITS SUBQ BEFORE MEALS, (Reported) Insulin Glargine (Lantus), 20 UNITS SUBQ BEDTIME, (Reported) Lisinopril (Lisinopril*), 20 MG ORAL DAILY, (Reported) Magnesium Hydroxide* (Milk Of Magnesia*), 30 ML ORAL DAILY, (Reported) Metformin Hcl* (Metformin Hcl*), 500 MG ORAL TID, (Reported) Neomycin/Polymyxin B Sulf/Hc (Uiwrvsvs-Than-Ac Eye Drops), 5 ML OP BID, ( Reported) Omeprazole (Omeprazole), 20 MG ORAL DAILY, (Reported) Tramadol Hcl* (Ultram*), 50 MG ORAL Q6H, (Reported) Scheduled PRN Acetaminophen* (Acetaminophen 325MG Tablet*), 650 MG ORAL Q4H PRN for Fever/ Headache/Mild Pain, (Reported) Albuterol Sulfate* (Albuterol Sulfate Hhn*), 3 ML INH Q4H PRN for Shortness of Breath, (Reported) Miscellaneous Medications Bisacodyl (Dulcolax), 10 MG RC, (Reported) Patient History Limited by: medical condition History Provided By: Patient, Medical Record, PMD Healthcare decision maker Resuscitation status Full Code Advanced Directive on File No Past Medical/Surgical History Past Medical/Surgical History: (1) Hypoxia (2) Elevated troponin (3) Behavioral change (4) CHF (congestive heart failure) (5) Diabetes mellitus (6) Hypertension (7) Acute respiratory failure (8) COPD exacerbation (9) Severe anemia (10) ATN (acute tubular necrosis) Review of Systems Psychiatric: Reports: prior hx, anxiety, depressed feelings, emotional problems , hallucinations Physical Exam General Appearance: alert, moderate distress, agitated Last 24 Hour Vital Signs Date Time Temp Pulse Resp B/P (MAP) Pulse Ox O2 Delivery O2 Flow Rate FiO2 04/11/18 04:00 95 04/11/18 04:00 97.8 96 20 120/79 96 Nasal Cannula 2.0 28 97.8 04/11/18 00:00 97.0 62 20 107/90 96 Nasal Cannula 2.0 28 97.0 04/11/18 00:00 86 04/10/18 23:35 88 20 Nasal Cannula 2.0 28 04/10/18 21:00 87 04/10/18 20:50 97.5 20 128/74 98 Nasal Cannula 2.0 28 97.5 04/10/18 20:30 97.9 88 18 125/72 96 Nasal Cannula 2.0 28 97.9 04/10/18 19:47 97.5 20 128/74 98 Nasal Cannula 2.0 28 97.5 04/10/18 19:34 128/74 04/10/18 16:30 97.5 20 132/77 98 Nasal Cannula 2.0 28 97.5 04/10/18 15:25 89 20 98 Nasal Cannula 2.0 28 04/10/18 15:15 89 20 96 Nasal Cannula 2.0 28 04/10/18 15:15 89 20 Nasal Cannula 2.0 28 04/10/18 14:50 97.5 18 121/70 95 Nasal Cannula 2.0 97.5 04/10/18 14:21 97.6 95 18 12170 95 Nasal Cannula 2.0 97.5 Intake and Output 04/10/18 04/11/18 19:00 07:00 Intake Total 0 ml 600 ml Balance 0 ml 600 ml Intake Oral 0 ml 600 ml Laboratory Tests Test 04/10/18 14:31 04/10/18 15:06 04/10/18 20:15 04/11/18 05:15 Arterial Blood pH 7.350 (7.350-7.450) Arterial Blood Partial Pressure CO2 49.9 mmHg (35.0-45.0) H Arterial Blood Partial Pressure O2 70.6 mmHg (75.0-100.0) L Arterial Blood HCO3 27.5 mmol/L (22.0-26.0) H Arterial Blood Oxygen Saturation 90.8 % (92.0-98.0) L Arterial Blood Base Excess 1.6 South Test Positive White Blood Count 7.4 K/UL (4.8-10.8) 7.7 K/UL (4.8-10.8) Red Blood Count 3.64 M/UL (4.70-6.10) L 4.15 M/UL (4.70-6.10) L Hemoglobin 8.4 G/DL (14.2-18.0) L 9.4 G/DL (14.2-18.0) L Hematocrit 27.8 % (42.0-52.0) L 31.1 % (42.0-52.0) L Mean Corpuscular Volume 76 FL (80-99) L 75 FL (80-99) L Mean Corpuscular Hemoglobin 23.0 PG (27.0-31.0) L 22.7 PG (27.0-31.0) L Mean Corpuscular Hemoglobin Concent 30.1 G/DL (32.0-36.0) L 30.3 G/DL (32.0-36.0) L Red Cell Distribution Width 20.5 % (11.6-14.8) H 20.6 % (11.6-14.8) H Platelet Count 241 K/UL (150-450) 283 K/UL (150-450) Mean Platelet Volume 8.0 FL (6.5-10.1) 7.7 FL (6.5-10.1) Neutrophils (%) (Auto) 63.7 % (45.0-75.0) 81.3 % (45.0-75.0) H Lymphocytes (%) (Auto) 22.1 % (20.0-45.0) 15.3 % (20.0-45.0) L Monocytes (%) (Auto) 9.5 % (1.0-10.0) 3.1 % (1.0-10.0) Eosinophils (%) (Auto) 3.3 % (0.0-3.0) H 0.0 % (0.0-3.0) Basophils (%) (Auto) 1.5 % (0.0-2.0) 0.3 % (0.0-2.0) Prothrombin Time 11.7 SEC (9.30-11.50) H Prothromb Time International Ratio 1.1 (0.9-1.1) Activated Partial Thromboplast Time 27 SEC (23-33) Sodium Level 142 MMOL/L (136-145) 141 MMOL/L (136-145) Potassium Level 3.6 MMOL/L (3.5-5.1) 4.3 MMOL/L (3.5-5.1) Chloride Level 106 MMOL/L (98-107) 105 MMOL/L (98-107) Carbon Dioxide Level 27 MMOL/L (21-32) 27 MMOL/L (21-32) Anion Gap 9 mmol/L (5-15) 9 mmol/L (5-15) Blood Urea Nitrogen 25 mg/dL (7-18) H 35 mg/dL (7-18) H Creatinine 1.1 MG/DL (0.55-1.30) 1.2 MG/DL (0.55-1.30) Estimat Glomerular Filtration Rate mL/min (>60) mL/min (>60) Glucose Level 129 MG/DL (74-106) H 127 MG/DL (74-106) H Lactic Acid Level 1.00 mmol/L (0.4-2.0) Calcium Level 8.9 MG/DL (8.5-10.1) 8.8 MG/DL (8.5-10.1) Total Bilirubin 0.5 MG/DL (0.2-1.0) 0.4 MG/DL (0.2-1.0) Aspartate Amino Transf (AST/SGOT) 42 U/L (15-37) H 40 U/L (15-37) H Alanine Aminotransferase (ALT/SGPT) 38 U/L (12-78) 40 U/L (12-78) Alkaline Phosphatase 58 U/L (46-116) 64 U/L (46-116) Total Creatine Kinase 708 U/L (26-308) H Troponin I 0.062 ng/mL (0.000-0.056) Pro-B-Type Natriuretic Peptide 623 pg/mL (0-125) H Total Protein 7.0 G/DL (6.4-8.2) 7.4 G/DL (6.4-8.2) Albumin 2.9 G/DL (3.4-5.0) L 2.9 G/DL (3.4-5.0) L Globulin 4.1 g/dL 4.5 g/dL Albumin/Globulin Ratio 0.7 (1.0-2.7) L 0.6 (1.0-2.7) L Urine Color Hailey Urine Appearance Slightly cloudy Urine pH 5 (4.5-8.0) Urine Specific [place] 1.025 (1.005-1.035) Urine Protein 4+ (NEGATIVE) H Urine Glucose (UA) Negative (NEGATIVE) Urine Ketones 2+ (NEGATIVE) H Urine Occult Blood 1+ (NEGATIVE) H Urine Nitrite Negative (NEGATIVE) Urine Bilirubin Negative (NEGATIVE) Urine Ictotest Negative Urine Urobilinogen Normal MG/DL (0.0-1.0) Urine Leukocyte Esterase 1+ (NEGATIVE) H Urine RBC 2-4 /HPF (0 - 0) H Urine WBC 5-10 /HPF (0 - 0) H Urine Squamous Epithelial Cells Occasional /LPF Urine Amorphous Sediment Many /LPF (NONE) H Urine Bacteria Few /HPF (NONE) Urine Granular Casts 0-2 /LPF (NONE) H Urine Waxy Casts 0-2 /LPF (NONE) H Triglycerides Level 19 MG/DL (30-150) L Cholesterol Level 142 MG/DL (< 200) LDL Cholesterol 51 mg/dL (<100) HDL Cholesterol 97 MG/DL (40-60) H Cholesterol/HDL Ratio 1.5 (3.3-4.4) L Height (Feet): 6 Height (Inches): 1.00 Weight (Pounds): 158 Medications Current Medications Medications (Trade) Dose Ordered Sig/Alison Route PRN Reason Start Time Stop Time Status Last Admin Dose Admin Acetaminophen (Tylenol) 650 mg Q4H PRN ORAL T>100.5 04/10/18 20:15 05/10/18 20:14 Al Hydroxide/Mg Hydroxide (Mylanta II) 30 ml Q6H PRN ORAL dyspepsia 04/10/18 20:15 05/10/18 20:14 Albuterol Sulfate (Proventil) 2.5 mg Q4H PRN IN-LINE Shortness of Breath 04/10/18 20:15 04/15/18 20:14 Amlodipine Besylate (Norvasc) 10 mg DAILY ORAL 04/11/18 09:00 05/11/18 08:59 Dextrose (Dextrose 50%) 25 ml PRN IV Hypoglycemia 04/10/18 20:30 05/10/18 20:29 Dextrose (Dextrose 50%) 50 ml PRN IV hypoglycemia 04/10/18 20:30 05/10/18 20:29 Heparin Sodium (Porcine) (Heparin 5000 units/ml) 5,000 units EVERY 12 HOURS SUBQ 04/10/18 21:00 05/10/18 20:59 04/10/18 22:06 Insulin Aspart (NovoLOG) BEFORE MEALS AND HS SUBQ 04/10/18 21:00 05/10/18 20:59 04/11/18 06:09 Lisinopril (Prinivil) 20 mg DAILY ORAL 04/11/18 09:00 05/11/18 08:59 Lorazepam (Ativan 2mg/ml 1ml) 0.5 mg Q4H PRN IV For Anxiety 04/10/18 20:15 04/17/18 20:14 Ondansetron HCl (Zofran) 4 mg Q6H PRN IVP Nausea & Vomiting 04/10/18 20:15 05/10/18 20:14 Polyethylene Glycol (Miralax) 17 gm HSPRN PRN ORAL Constipation 04/10/18 20:15 05/10/18 20:14 Zolpidem Tartrate (Ambien) 5 mg HSPRN PRN ORAL Insomnia 04/10/18 21:00 04/17/18 20:59 Assessment/Plan Assessment/Plan schizophrenia agitation Thorazine Zyprexa the pt may not leave Calvin Walton M.D. Apr 11, 2018 08:17
[2018-04-11] MEDS: Heparin 5000 units/ml inj SUBQ SCH ×2 (09:00→21:00)
[2018-04-11] MEDS: Lisinopril 20mg tab ORAL SCH (09:00)
--- NOTE | 2018-04-11 10:30 | Consultation ---
History of Present Illness General Date patient seen: Apr 11, 2018 Time patient seen: 10:25 Chief Complaint: Behavioral Complaint Present Illness HPI Patient is brought in by EMS. He has a history of COPD and Hypertension. He was agitated at the [facility]. He is not conversant but is combative. History obtained by chart. Allergies: Coded Allergies: NO KNOWN ALLERGIES (Unverified Allergy, Unknown, 02/07/18) Medication History Scheduled Amlodipine Besylate* (Amlodipine Besylate*), 10 MG ORAL DAILY, (Reported) Atorvastatin Calcium* (Lipitor*), 10 MG ORAL BEDTIME, (Reported) Atropine Sulfate (Atropine Sulfate), 5 ML OP BID, (Reported) Brimonidine Tartrate* (Alphagan*), 1 DROP LEFT EYE BID, (Reported) Brimonidine Tartrate/Timolol (Combigan Eye Drops), 5 ML OP BID, (Reported) Clonidine Hcl* (Catapres*), 0.1 MG ORAL EVERY 6 HOURS, (Reported) Cranberry Fruit Concentrate (Cranberry), 450 MG PO DAILY, (Reported) Docusate Sodium* (Colace*), 100 MG ORAL DAILY, (Reported) Dorzolamide Hcl/Timolol Maleat (Cosopt Eye Drops), 10 ML OP BID, (Reported) Famotidine (Famotidine), 20 MG ORAL DAILY, (Reported) Ferrous Sulfate* (Ferrous Sulfate*), 325 MG ORAL THREE TIMES A DAY, (Reported) Folic Acid* (Folic Acid*), 1 MG ORAL DAILY, (Reported) Insulin Aspart* (Novolog*), 8 UNITS SUBQ BEFORE MEALS, (Reported) Insulin Glargine (Lantus), 20 UNITS SUBQ BEDTIME, (Reported) Lisinopril (Lisinopril*), 20 MG ORAL DAILY, (Reported) Magnesium Hydroxide* (Milk Of Magnesia*), 30 ML ORAL DAILY, (Reported) Metformin Hcl* (Metformin Hcl*), 500 MG ORAL TID, (Reported) Neomycin/Polymyxin B Sulf/Hc (Dfodmfii-Jpou-Wt Eye Drops), 5 ML OP BID, ( Reported) Omeprazole (Omeprazole), 20 MG ORAL DAILY, (Reported) Tramadol Hcl* (Ultram*), 50 MG ORAL Q6H, (Reported) Scheduled PRN Acetaminophen* (Acetaminophen 325MG Tablet*), 650 MG ORAL Q4H PRN for Fever/ Headache/Mild Pain, (Reported) Albuterol Sulfate* (Albuterol Sulfate Hhn*), 3 ML INH Q4H PRN for Shortness of Breath, (Reported) Miscellaneous Medications Bisacodyl (Dulcolax), 10 MG RC, (Reported) Patient History Healthcare decision maker Resuscitation status Full Code Advanced Directive on File No Review of Systems Constitutional: Reports: no symptoms Eye: Reports: no symptoms ENT: Reports: no symptoms Respiratory: Reports: no symptoms Cardiovascular: Reports: no symptoms Gastrointestinal: Reports: no symptoms Genitourinary: Reports: no symptoms Musculoskeletal: Reports: no symptoms Skin: Reports: no symptoms Psychiatric: Reports: no symptoms Neurological: Reports: no symptoms Endocrine: Reports: no symptoms Hematologic/Lymphatic: Reports: no symptoms Physical Exam General Appearance: no apparent distress, agitated, combative Lines, tubes and drains: peripheral HEENT: normocephalic Neck: non-tender Respiratory/Chest: chest wall non-tender Cardiovascular/Chest: normal peripheral pulses, normal rate, regular rhythm Abdomen: normal bowel sounds Extremities: normal range of motion Neurologic: alert Last 24 Hour Vital Signs Date Time Temp Pulse Resp B/P (MAP) Pulse Ox O2 Delivery O2 Flow Rate FiO2 04/11/18 09:00 99/64 04/11/18 09:00 87 99/64 04/11/18 08:00 97.5 87 20 99/64 96 Nasal Cannula 2.0 28 97.5 04/11/18 04:00 95 04/11/18 04:00 97.8 96 20 120/79 96 Nasal Cannula 2.0 28 97.8 04/11/18 00:00 97.0 62 20 107/90 96 Nasal Cannula 2.0 28 97.0 04/11/18 00:00 86 04/10/18 23:35 88 20 Nasal Cannula 2.0 28 04/10/18 21:00 87 04/10/18 20:50 97.5 20 128/74 98 Nasal Cannula 2.0 28 97.5 04/10/18 20:30 97.9 88 18 125/72 96 Nasal Cannula 2.0 28 97.9 04/10/18 19:47 97.5 20 128/74 98 Nasal Cannula 2.0 28 97.5 04/10/18 19:34 128/74 04/10/18 16:30 97.5 20 132/77 98 Nasal Cannula 2.0 28 97.5 04/10/18 15:25 89 20 98 Nasal Cannula 2.0 28 04/10/18 15:15 89 20 96 Nasal Cannula 2.0 28 04/10/18 15:15 89 20 Nasal Cannula 2.0 28 04/10/18 14:50 97.5 18 121/70 95 Nasal Cannula 2.0 97.5 04/10/18 14:21 97.6 95 18 121/70 95 Nasal Cannula 2.0 97.5 Intake and Output 04/10/18 04/11/18 19:00 07:00 Intake Total 0 ml 600 ml Balance 0 ml 600 ml Intake Oral 0 ml 600 ml Laboratory Tests Test 04/10/18 14:31 04/10/18 15:06 04/10/18 20:15 04/11/18 05:15 Arterial Blood pH 7.350 (7.350-7.450) Arterial Blood Partial Pressure CO2 49.9 mmHg (35.0-45.0) H Arterial Blood Partial Pressure O2 70.6 mmHg (75.0-100.0) L Arterial Blood HCO3 27.5 mmol/L (22.0-26.0) H Arterial Blood Oxygen Saturation 90.8 % (92.0-98.0) L Arterial Blood Base Excess 1.6 South Test Positive White Blood Count 7.4 K/UL (4.8-10.8) 7.7 K/UL (4.8-10.8) Red Blood Count 3.64 M/UL (4.70-6.10) L 4.15 M/UL (4.70-6.10) L Hemoglobin 8.4 G/DL (14.2-18.0) L 9.4 G/DL (14.2-18.0) L Hematocrit 27.8 % (42.0-52.0) L 31.1 % (42.0-52.0) L Mean Corpuscular Volume 76 FL (80-99) L 75 FL (80-99) L Mean Corpuscular Hemoglobin 23.0 PG (27.0-31.0) L 22.7 PG (27.0-31.0) L Mean Corpuscular Hemoglobin Concent 30.1 G/DL (32.0-36.0) L 30.3 G/DL (32.0-36.0) L Red Cell Distribution Width 20.5 % (11.6-14.8) H 20.6 % (11.6-14.8) H Platelet Count 241 K/UL (150-450) 283 K/UL (150-450) Mean Platelet Volume 8.0 FL (6.5-10.1) 7.7 FL (6.5-10.1) Neutrophils (%) (Auto) 63.7 % (45.0-75.0) 81.3 % (45.0-75.0) H Lymphocytes (%) (Auto) 22.1 % (20.0-45.0) 15.3 % (20.0-45.0) L Monocytes (%) (Auto) 9.5 % (1.0-10.0) 3.1 % (1.0-10.0) Eosinophils (%) (Auto) 3.3 % (0.0-3.0) H 0.0 % (0.0-3.0) Basophils (%) (Auto) 1.5 % (0.0-2.0) 0.3 % (0.0-2.0) Prothrombin Time 11.7 SEC (9.30-11.50) H Prothromb Time International Ratio 1.1 (0.9-1.1) Activated Partial Thromboplast Time 27 SEC (23-33) Sodium Level 142 MMOL/L (136-145) 141 MMOL/L (136-145) Potassium Level 3.6 MMOL/L (3.5-5.1) 4.3 MMOL/L (3.5-5.1) Chloride Level 106 MMOL/L (98-107) 105 MMOL/L (98-107) Carbon Dioxide Level 27 MMOL/L (21-32) 27 MMOL/L (21-32) Anion Gap 9 mmol/L (5-15) 9 mmol/L (5-15) Blood Urea Nitrogen 25 mg/dL (7-18) H 35 mg/dL (7-18) H Creatinine 1.1 MG/DL (0.55-1.30) 1.2 MG/DL (0.55-1.30) Estimat Glomerular Filtration Rate mL/min (>60) mL/min (>60) Glucose Level 129 MG/DL (74-106) H 127 MG/DL (74-106) H Lactic Acid Level 1.00 mmol/L (0.4-2.0) Calcium Level 8.9 MG/DL (8.5-10.1) 8.8 MG/DL (8.5-10.1) Total Bilirubin 0.5 MG/DL (0.2-1.0) 0.4 MG/DL (0.2-1.0) Aspartate Amino Transf (AST/SGOT) 42 U/L (15-37) H 40 U/L (15-37) H Alanine Aminotransferase (ALT/SGPT) 38 U/L (12-78) 40 U/L (12-78) Alkaline Phosphatase 58 U/L (46-116) 64 U/L (46-116) Total Creatine Kinase 708 U/L (26-308) H Troponin I 0.062 ng/mL (0.000-0.056) Pro-B-Type Natriuretic Peptide 623 pg/mL (0-125) H Total Protein 7.0 G/DL (6.4-8.2) 7.4 G/DL (6.4-8.2) Albumin 2.9 G/DL (3.4-5.0) L 2.9 G/DL (3.4-5.0) L Globulin 4.1 g/dL 4.5 g/dL Albumin/Globulin Ratio 0.7 (1.0-2.7) L 0.6 (1.0-2.7) L Urine Color Hailey Urine Appearance Slightly cloudy Urine pH 5 (4.5-8.0) Urine Specific [place] 1.025 (1.005-1.035) Urine Protein 4+ (NEGATIVE) H Urine Glucose (UA) Negative (NEGATIVE) Urine Ketones 2+ (NEGATIVE) H Urine Occult Blood 1+ (NEGATIVE) H Urine Nitrite Negative (NEGATIVE) Urine Bilirubin Negative (NEGATIVE) Urine Ictotest Negative Urine Urobilinogen Normal MG/DL (0.0-1.0) Urine Leukocyte Esterase 1+ (NEGATIVE) H Urine RBC 2-4 /HPF (0 - 0) H Urine WBC 5-10 /HPF (0 - 0) H Urine Squamous Epithelial Cells Occasional /LPF Urine Amorphous Sediment Many /LPF (NONE) H Urine Bacteria Few /HPF (NONE) Urine Granular Casts 0-2 /LPF (NONE) H Urine Waxy Casts 0-2 /LPF (NONE) H Triglycerides Level 19 MG/DL (30-150) L Cholesterol Level 142 MG/DL (< 200) LDL Cholesterol 51 mg/dL (<100) HDL Cholesterol 97 MG/DL (40-60) H Cholesterol/HDL Ratio 1.5 (3.3-4.4) L Height (Feet): 6 Height (Inches): 1.00 Weight (Pounds): 158 Medications Current Medications Medications (Trade) Dose Ordered Sig/Alison Route PRN Reason Start Time Stop Time Status Last Admin Dose Admin Acetaminophen (Tylenol) 650 mg Q4H PRN ORAL T>100.5 04/10/18 20:15 05/10/18 20:14 Al Hydroxide/Mg Hydroxide (Mylanta II) 30 ml Q6H PRN ORAL dyspepsia 04/10/18 20:15 05/10/18 20:14 Albuterol Sulfate (Proventil) 2.5 mg Q4H PRN IN-LINE Shortness of Breath 04/10/18 20:15 04/15/18 20:14 Amlodipine Besylate (Norvasc) 10 mg DAILY ORAL 04/11/18 09:00 05/11/18 08:59 Chlorpromazine (Thorazine) 25 mg Q6H PRN IM agitation 04/11/18 08:15 05/11/18 08:14 Dextrose (Dextrose 50%) 25 ml PRN IV Hypoglycemia 04/10/18 20:30 05/10/18 20:29 Dextrose (Dextrose 50%) 50 ml PRN IV hypoglycemia 04/10/18 20:30 05/10/18 20:29 Heparin Sodium (Porcine) (Heparin 5000 units/ml) 5,000 units EVERY 12 HOURS SUBQ 04/10/18 21:00 05/10/18 20:59 04/10/18 22:06 Insulin Aspart (NovoLOG) BEFORE MEALS AND HS SUBQ 04/10/18 21:00 05/10/18 20:59 04/11/18 06:09 Lisinopril (Prinivil) 20 mg DAILY ORAL 04/11/18 09:00 05/11/18 08:59 Olanzapine (ZyPREXA) 5 mg DAILY ORAL 04/11/18 09:00 05/11/18 08:59 04/11/18 09:10 Olanzapine (ZyPREXA) 10 mg BEDTIME ORAL 04/11/18 21:00 05/11/18 20:59 Ondansetron HCl (Zofran) 4 mg Q6H PRN IVP Nausea & Vomiting 04/10/18 20:15 05/10/18 20:14 Polyethylene Glycol (Miralax) 17 gm HSPRN PRN ORAL Constipation 04/10/18 20:15 05/10/18 20:14 Assessment/Plan Status: stable Assessment/Plan Hypertension COPD AMS 1) Continue lisinopril 2) Oxygen 3) Steroids, pulmonary toilet, nebs for COPD 4) Ativan/Haldol prn agitation 5) Obtain cultures, Urine tox for AMS 6) CV stable Juan C Villanueva M.D. Apr 11, 2018 10:30
[2018-04-11] MEDS ORDERED: Albuterol/Ipratropium 3ml neb HHN PRN (11:30)
--- NOTE | 2018-04-11 11:34 | History and Physical ---
History of Present Illness General Date patient seen: Apr 11, 2018 Time patient seen: 10:30 Reason for Hospitalization: hypoxia Present Illness HPI 72 y/old male with PMH of HTN, COPD, current smoker, CHF, anemia, diabetes, psychiatric disorder was brought in by EMS. He was agitated at the [facility]. His oxygen saturation was 88% when EMS arrived. ABG revealed hypoxemia and hypercapnia The patient required placement on supplemental oxygen and hypoxemia resolved At that time he was only responsive to his name at this time. Unable to obtain complete history VS were stable, afebrile Lab work revealed no leucocytosis, microcytic anemia, minimally elevated troponin , pro BNP 623 CXR showed diffusely increased interstitial markings, possibly related to pulmonary vascular congestion versus interstitial pneumonitis. Cardiomegaly. UA + pyuria, few gbacteria patient was placed on O2, given HHN, loading dose of IV steroids and admitted for further management Allergies: Coded Allergies: NO KNOWN ALLERGIES (Unverified Allergy, Unknown, 02/07/18) Medication History Scheduled Amlodipine Besylate* (Amlodipine Besylate*), 10 MG ORAL DAILY, (Reported) Atorvastatin Calcium* (Lipitor*), 10 MG ORAL BEDTIME, (Reported) Atropine Sulfate (Atropine Sulfate), 5 ML OP BID, (Reported) Brimonidine Tartrate* (Alphagan*), 1 DROP LEFT EYE BID, (Reported) Brimonidine Tartrate/Timolol (Combigan Eye Drops), 5 ML OP BID, (Reported) Clonidine Hcl* (Catapres*), 0.1 MG ORAL EVERY 6 HOURS, (Reported) Cranberry Fruit Concentrate (Cranberry), 450 MG PO DAILY, (Reported) Docusate Sodium* (Colace*), 100 MG ORAL DAILY, (Reported) Dorzolamide Hcl/Timolol Maleat (Cosopt Eye Drops), 10 ML OP BID, (Reported) Famotidine (Famotidine), 20 MG ORAL DAILY, (Reported) Ferrous Sulfate* (Ferrous Sulfate*), 325 MG ORAL THREE TIMES A DAY, (Reported) Folic Acid* (Folic Acid*), 1 MG ORAL DAILY, (Reported) Insulin Aspart* (Novolog*), 8 UNITS SUBQ BEFORE MEALS, (Reported) Insulin Glargine (Lantus), 20 UNITS SUBQ BEDTIME, (Reported) Lisinopril (Lisinopril*), 20 MG ORAL DAILY, (Reported) Magnesium Hydroxide* (Milk Of Magnesia*), 30 ML ORAL DAILY, (Reported) Metformin Hcl* (Metformin Hcl*), 500 MG ORAL TID, (Reported) Neomycin/Polymyxin B Sulf/Hc (Ikdzeaqs-Sokq-Wy Eye Drops), 5 ML OP BID, ( Reported) Omeprazole (Omeprazole), 20 MG ORAL DAILY, (Reported) Tramadol Hcl* (Ultram*), 50 MG ORAL Q6H, (Reported) Scheduled PRN Acetaminophen* (Acetaminophen 325MG Tablet*), 650 MG ORAL Q4H PRN for Fever/ Headache/Mild Pain, (Reported) Albuterol Sulfate* (Albuterol Sulfate Hhn*), 3 ML INH Q4H PRN for Shortness of Breath, (Reported) Miscellaneous Medications Bisacodyl (Dulcolax), 10 MG RC, (Reported) Patient History Healthcare decision maker Resuscitation status Full Code Advanced Directive on File No Past Medical/Surgical History Past Medical/Surgical History: (1) Acute respiratory failure (2) COPD exacerbation (3) Severe anemia (4) CHF (congestive heart failure) (5) Diabetes mellitus (6) Hypertension Review of Systems ROS Narrative unable to obtain due to ALOC Physical Exam General Appearance: no apparent distress Lines, tubes and drains: peripheral HEENT: normocephalic, atraumatic, anicteric Neck: supple Respiratory/Chest: no accessory muscle use, decreased breath sounds Cardiovascular/Chest: normal rate, regular rhythm, no JVD Abdomen: normal bowel sounds, non tender, soft Extremities: normal range of motion Skin Exam: warm/dry Neurologic: alert Musculoskeletal: normal muscle bulk Last 24 Hour Vital Signs Date Time Temp Pulse Resp B/P (MAP) Pulse Ox O2 Delivery O2 Flow Rate FiO2 04/11/18 09:00 99/64 04/11/18 09:00 87 99/64 04/11/18 08:00 97.5 87 20 99/64 96 Nasal Cannula 2.0 28 97.5 04/11/18 04:00 95 04/11/18 04:00 97.8 96 20 120/79 96 Nasal Cannula 2.0 28 97.8 04/11/18 00:00 97.0 62 20 107/90 96 Nasal Cannula 2.0 28 97.0 04/11/18 00:00 86 6/9/18 23:35 88 20 Nasal Cannula 2.0 28 04/10/18 21:00 87 04/10/18 20:50 97.5 20 128/74 98 Nasal Cannula 2.0 28 97.5 04/10/18 20:30 97.9 88 18 125/72 96 Nasal Cannula 2.0 28 97.9 04/10/18 19:47 97.5 20 128/74 98 Nasal Cannula 2.0 28 97.5 04/10/18 19:34 128/74 04/10/18 16:30 97.5 20 132/77 98 Nasal Cannula 2.0 28 97.5 04/10/18 15:25 89 20 98 Nasal Cannula 2.0 28 04/10/18 15:15 89 20 96 Nasal Cannula 2.0 28 04/10/18 15:15 89 20 Nasal Cannula 2.0 28 04/10/18 14:50 97.5 18 121/70 95 Nasal Cannula 2.0 97.5 04/10/18 14:21 97.6 95 18 121/70 95 Nasal Cannula 2.0 97.5 Intake and Output 04/10/18 04/11/18 19:00 07:00 Intake Total 0 ml 600 ml Balance 0 ml 600 ml Intake Oral 0 ml 600 ml Laboratory Tests Test 04/10/18 14:31 04/10/18 15:06 04/10/18 20:15 04/11/18 05:15 Arterial Blood pH 7.350 (7.350-7.450) Arterial Blood Partial Pressure CO2 49.9 mmHg (35.0-45.0) H Arterial Blood Partial Pressure O2 70.6 mmHg (75.0-100.0) L Arterial Blood HCO3 27.5 mmol/L (22.0-26.0) H Arterial Blood Oxygen Saturation 90.8 % (92.0-98.0) L Arterial Blood Base Excess 1.6 South Test Positive White Blood Count 7.4 K/UL (4.8-10.8) 7.7 K/UL (4.8-10.8) Red Blood Count 3.64 M/UL (4.70-6.10) L 4.15 M/UL (4.70-6.10) L Hemoglobin 8.4 G/DL (14.2-18.0) L 9.4 G/DL (14.2-18.0) L Hematocrit 27.8 % (42.0-52.0) L 31.1 % (42.0-52.0) L Mean Corpuscular Volume 76 FL (80-99) L 75 FL (80-99) L Mean Corpuscular Hemoglobin 23.0 PG (27.0-31.0) L 22.7 PG (27.0-31.0) L Mean Corpuscular Hemoglobin Concent 30.1 G/DL (32.0-36.0) L 30.3 G/DL (32.0-36.0) L Red Cell Distribution Width 20.5 % (11.6-14.8) H 20.6 % (11.6-14.8) H Platelet Count 241 K/UL (150-450) 283 K/UL (150-450) Mean Platelet Volume 8.0 FL (6.5-10.1) 7.7 FL (6.5-10.1) Neutrophils (%) (Auto) 63.7 % (45.0-75.0) 81.3 % (45.0-75.0) H Lymphocytes (%) (Auto) 22.1 % (20.0-45.0) 15.3 % (20.0-45.0) L Monocytes (%) (Auto) 9.5 % (1.0-10.0) 3.1 % (1.0-10.0) Eosinophils (%) (Auto) 3.3 % (0.0-3.0) H 0.0 % (0.0-3.0) Basophils (%) (Auto) 1.5 % (0.0-2.0) 0.3 % (0.0-2.0) Prothrombin Time 11.7 SEC (9.30-11.50) H Prothromb Time International Ratio 1.1 (0.9-1.1) Activated Partial Thromboplast Time 27 SEC (23-33) Sodium Level 142 MMOL/L (136-145) 141 MMOL/L (136-145) Potassium Level 3.6 MMOL/L (3.5-5.1) 4.3 MMOL/L (3.5-5.1) Chloride Level 106 MMOL/L (98-107) 105 MMOL/L (98-107) Carbon Dioxide Level 27 MMOL/L (21-32) 27 MMOL/L (21-32) Anion Gap 9 mmol/L (5-15) 9 mmol/L (5-15) Blood Urea Nitrogen 25 mg/dL (7-18) H 35 mg/dL (7-18) H Creatinine 1.1 MG/DL (0.55-1.30) 1.2 MG/DL (0.55-1.30) Estimat Glomerular Filtration Rate mL/min (>60) mL/min (>60) Glucose Level 129 MG/DL (74-106) H 127 MG/DL (74-106) H Lactic Acid Level 1.00 mmol/L (0.4-2.0) Calcium Level 8.9 MG/DL (8.5-10.1) 8.8 MG/DL (8.5-10.1) Total Bilirubin 0.5 MG/DL (0.2-1.0) 0.4 MG/DL (0.2-1.0) Aspartate Amino Transf (AST/SGOT) 42 U/L (15-37) H 40 U/L (15-37) H Alanine Aminotransferase (ALT/SGPT) 38 U/L (12-78) 40 U/L (12-78) Alkaline Phosphatase 58 U/L (46-116) 64 U/L (46-116) Total Creatine Kinase 708 U/L (26-308) H Troponin I 0.062 ng/mL (0.000-0.056) Pro-B-Type Natriuretic Peptide 623 pg/mL (0-125) H Total Protein 7.0 G/DL (6.4-8.2) 7.4 G/DL (6.4-8.2) Albumin 2.9 G/DL (3.4-5.0) L 2.9 G/DL (3.4-5.0) L Globulin 4.1 g/dL 4.5 g/dL Albumin/Globulin Ratio 0.7 (1.0-2.7) L 0.6 (1.0-2.7) L Urine Color Hailey Urine Appearance Slightly cloudy Urine pH 5 (4.5-8.0) Urine Specific [place] 1.025 (1.005-1.035) Urine Protein 4+ (NEGATIVE) H Urine Glucose (UA) Negative (NEGATIVE) Urine Ketones 2+ (NEGATIVE) H Urine Occult Blood 1+ (NEGATIVE) H Urine Nitrite Negative (NEGATIVE) Urine Bilirubin Negative (NEGATIVE) Urine Ictotest Negative Urine Urobilinogen Normal MG/DL (0.0-1.0) Urine Leukocyte Esterase 1+ (NEGATIVE) H Urine RBC 2-4 /HPF (0 - 0) H Urine WBC 5-10 /HPF (0 - 0) H Urine Squamous Epithelial Cells Occasional /LPF Urine Amorphous Sediment Many /LPF (NONE) H Urine Bacteria Few /HPF (NONE) Urine Granular Casts 0-2 /LPF (NONE) H Urine Waxy Casts 0-2 /LPF (NONE) H Triglycerides Level 19 MG/DL (30-150) L Cholesterol Level 142 MG/DL (< 200) LDL Cholesterol 51 mg/dL (<100) HDL Cholesterol 97 MG/DL (40-60) H Cholesterol/HDL Ratio 1.5 (3.3-4.4) L Height (Feet): 6 Height (Inches): 1.00 Weight (Pounds): 158 Medications Current Medications Medications (Trade) Dose Ordered Sig/Alison Route PRN Reason Start Time Stop Time Status Last Admin Dose Admin Acetaminophen (Tylenol) 650 mg Q4H PRN ORAL T>100.5 04/10/18 20:15 05/10/18 20:14 Al Hydroxide/Mg Hydroxide (Mylanta II) 30 ml Q6H PRN ORAL dyspepsia 04/10/18 20:15 05/10/18 20:14 Albuterol Sulfate (Proventil) 2.5 mg Q4H PRN IN-LINE Shortness of Breath 04/10/18 20:15 04/15/18 20:14 Amlodipine Besylate (Norvasc) 10 mg DAILY ORAL 04/11/18 09:00 05/11/18 08:59 Chlorpromazine (Thorazine) 25 mg Q6H PRN IM agitation 04/11/18 08:15 05/11/18 08:14 Dextrose (Dextrose 50%) 25 ml PRN IV Hypoglycemia 04/10/18 20:30 05/10/18 20:29 Dextrose (Dextrose 50%) 50 ml PRN IV hypoglycemia 04/10/18 20:30 05/10/18 20:29 Heparin Sodium (Porcine) (Heparin 5000 units/ml) 5,000 units EVERY 12 HOURS SUBQ 04/10/18 21:00 05/10/18 20:59 04/10/18 22:06 Insulin Aspart (NovoLOG) BEFORE MEALS AND HS SUBQ 04/10/18 21:00 05/10/18 20:59 04/11/18 06:09 Lisinopril (Prinivil) 20 mg DAILY ORAL 04/11/18 09:00 05/11/18 08:59 Olanzapine (ZyPREXA) 5 mg DAILY ORAL 04/11/18 09:00 05/11/18 08:59 04/11/18 09:10 Olanzapine (ZyPREXA) 10 mg BEDTIME ORAL 04/11/18 21:00 05/11/18 20:59 Ondansetron HCl (Zofran) 4 mg Q6H PRN IVP Nausea & Vomiting 04/10/18 20:15 05/10/18 20:14 Polyethylene Glycol (Miralax) 17 gm HSPRN PRN ORAL Constipation 04/10/18 20:15 05/10/18 20:14 Assessment/Plan Assessment/Plan ASSESSMENT acute hypoxia due to COPD exacerbation -resolved acute encephalopathy on chronic psychiatric disorder ( probably due to hypoxia) COPD exacerbation elevated troponin HTN CHF microcytic anemia DM Nicotine dependency with withdrawal PLAN OF CARE tele O2 HHN IV steroids and taper fast fup with CXR in am sputum cx if able will hold off abx for now debt management counselor on smoking cessation Nicotine patch troponin in am no cardiac complaints, ECG no acute ischemic changes cardio follows ECHO BP management with [place] and [facility], optimize further as needed lipid panel stable, s/p ASA x 1 and Nitro x 1 in ED BS management with SSI, check HgbA1c DVT GI prophylaxis monitor HH, goal to keep Hgb above 7 heme follows anemia w/up psych eval appreciated psych medications regimen optimized as per psych supportive care case discussed and evaluated by supervising physician Carmen Wick NP Apr 11, 2018 11:34
[2018-04-11 12:00] VITALS: BP 112/71
[2018-04-11 12:17] LABS: % IRON SATURATION 5 % (15-50); IRON 17 ug/dL (50-175); TOTAL IRON BINDING CAPACITY 344 ug/dL (250-450)
[2018-04-11 12:22] LABS: FERRITIN 30 NG/ML (8-388); LACTATE DEHYDROGENASE 313 U/L (135-225)
[2018-04-11] MEDS: Solu-MEDROL 40mg Inj IVP SCH ×2 (13:08→22:00)
[2018-04-11 16:00] VITALS: BP 117/88
[2018-04-11 20:00] VITALS: BP 146/96
[2018-04-11] MEDS: OLANZapine 10mg tab ORAL SCH (20:48)
[2018-04-12] VITALS: BP 142/85
[2018-04-12 04:00] VITALS: BP 130/86
[2018-04-12] MEDS: Solu-MEDROL 40mg Inj IVP SCH ×3 (06:00→22:00)
[2018-04-12] MEDS: NovoLOG Insulin Flexpen SUBQ SCH ×4 (06:28→21:00)
[2018-04-12 08:00] VITALS: BP 146/90
[2018-04-12] MEDS: Lisinopril 20mg tab ORAL SCH (08:07)
[2018-04-12] MEDS: Heparin 5000 units/ml inj SUBQ SCH ×2 (08:07→21:00)
--- NOTE | 2018-04-12 08:31 | Consultation ---
DATE OF CONSULTATION: 04/11/2018 HEMATOLOGY/ONCOLOGY CONSULTATION CONSULTING PHYSICIAN: Hua Antony M.D. REQUESTING PHYSICIAN: Josue Dixon M.D. REASON FOR CONSULTATION: Evaluation of anemia. IDENTIFICATION DATA: Dear Dr. Dixon and Carmen Delano, The patient is a pleasant 72-year-old male with past medical history, which is significant for hypertension, COPD brought in my EMS. He was not conversive, was combative, agitated at nursing home facility. I reviewed the patient's labs, hemoglobin 9.4, MCV 25, seen in the ER by Dr. Lim, placed on oxygen 95%, unable to provide any further history at this particular moment. Hematology Service consulted for 00:51 noted. PAST MEDICAL HISTORY: As noted above COPD, diabetes, hypertension, and CHF. PAST SURGICAL HISTORY: None reported. ALLERGIES: No known drug allergies. REVIEW OF SYSTEMS: CONSTITUTIONAL: No fevers, chills, or night sweats. SKIN: No rashes, bumps, or itching. HEENT: No headache, hearing or visual changes. BREASTS: No lumps, pain, or discharge. PULMONARY: No cough, sputum, or shortness of breath. GASTROINTESTINAL: No nausea, vomiting, or diarrhea. GENITOURINARY: No dysuria, frequency, or urgency. MUSCULOSKELETAL: No joint swelling, muscle pain, or trauma. PHYSICAL EXAMINATION: VITAL SIGNS: Reviewed. GENERAL: No acute distress. LUNGS: Decreased breath sounds. Some crackles noted CARDIOVASCULAR: 01:28 rate. Tachycardic. ABDOMEN: Soft, nontender, and nondistended. EXTREMITIES: No cyanosis, swelling, or edema noted. LABORATORY DATA: WBC 7.4, hemoglobin 8.4, hematocrit 28, and platelet count 241,000. IMAGING: Chest x-ray, diffuse interstitial markings, cardiomegaly noted. ASSESSMENT AND RECOMMENDATIONS: 1. Anemia of chronic disease. Continue to closely monitor. No evidence of hemolysis. Review of the patient's prior labs, this is the first time he has been admitted to [facility]. MCV suppressed, therefore consider GI bleed. We will obtain ferritin, TSH, folic acid. In addition, 02:06____ homocysteine has been ordered. Anemia of chronic disease, multiple medical problems, macrocytosis, rule out GI bleed. Further evaluation of occult blood. Result are pending at this moment, have been ordered. 2. Azotemia, likely the patient is dehydrated. Closely monitor for improvement. 3. Neutrophilia, potentially secondary to reactive process. 4. Cardiomegaly with congestive heart failure. Evaluation with Cardiology team. 5. Hypertension, systolic blood pressure goal less than 140. 6. COPD history. I appreciate the consultation. Hua Antony M.D. DR: MANUELA JOB#: [id number] CC:
--- NOTE | 2018-04-12 10:13 | Diagnostic Imaging Report ---
Indication: Reason For Exam: SOB Technique: One view of the chest Comparison: 04/10/2018 Findings: The heart is enlarged. Pulmonary interstitial congestion has improved, with only minimal residual. Pleural spaces are clear. Impression: Improved interstitial congestion with minimal residual, over 2 days
--- NOTE | 2018-04-12 10:58 | General Progress Note ---
Assessment/Plan Status: stable Assessment/Plan 1. Anemia of chronic disease. --> Continue to closely monitor. No evidence of hemolysis. Anemia of chronic disease, multiple medical problems, macrocytosis, rule out GI bleed. --> Further evaluation of occult blood. 2. Azotemia --> Closely monitor for improvement. 3. Neutrophilia, potentially secondary to reactive process. 4. Cardiomegaly with congestive heart failure. Evaluation with Cardiology team. 5. Hypertension, systolic blood pressure goal less than 140. 6. COPD history. Subjective Date patient seen: Apr 12, 2018 Allergies: Coded Allergies: NO KNOWN ALLERGIES (Unverified Allergy, Unknown, 02/07/18) All Systems: reviewed and negative except above Subjective Pt seen resting in bed, no SOB or distress noted. On tele monitor, A//O X2, verbally responsive. Objective Last 24 Hour Vital Signs Date Time Temp Pulse Resp B/P (MAP) Pulse Ox O2 Delivery O2 Flow Rate FiO2 04/12/18 08:07 146/90 04/12/18 08:07 112 146/90 04/12/18 08:00 98.6 106 18 146/90 100 Room Air 2.0 21 98.6 04/12/18 08:00 122 04/12/18 07:15 104 18 Room Air 21 04/12/18 04:00 91 04/12/18 04:00 97.5 104 20 130/86 100 Room Air 97.5 04/12/18 00:00 110 04/12/18 00:00 98.7 110 20 142/85 97 Room Air 98.7 04/11/18 20:00 98.0 107 20 146/96 98 Room Air 98.0 04/11/18 20:00 97 04/11/18 19:05 98 18 Room Air 21 04/11/18 16:00 114 04/11/18 16:00 97.8 82 20 117/88 96 Nasal Cannula 2.0 28 97.8 04/11/18 12:00 92 04/11/18 12:00 97.6 86 20 112/71 96 Nasal Cannula 2.0 28 97.6 Intake and Output 04/11/18 04/12/18 19:00 07:00 Intake Total 900 ml Balance 900 ml Intake Oral 900 ml # Voids 5 # Bowel Movements 1 Height (Feet): 6 Height (Inches): 1.00 Weight (Pounds): 158 General Appearance: WD/WN, no apparent distress EENT: PERRL/EOMI Neck: supple Cardiovascular: normal peripheral pulses Respiratory/Chest: normal breath sounds Abdomen: soft Hua Antony MD Apr 12, 2018 10:58
[2018-04-12 12:00] VITALS: BP 118/86
--- NOTE | 2018-04-12 12:39 | Pulmonology Progress Note ---
Assessment/Plan Problems: (1) CHF (congestive heart failure) (2) COPD exacerbation (3) Severe anemia (4) ATN (acute tubular necrosis) (5) Behavioral change (6) Diabetes mellitus Assessment/Plan anemia w/u pending titrate fio2 respiratory treatment adjust psych meds sliding scale diabetic meds dvt prophylaxis Subjective ROS Limited/Unobtainable: No Constitutional: Reports: no symptoms HEENT: Repors: no symptoms Respiratory: Reports: no symptoms Allergies: Coded Allergies: NO KNOWN ALLERGIES (Unverified Allergy, Unknown, 02/07/18) Objective Last 24 Hour Vital Signs Date Time Temp Pulse Resp B/P (MAP) Pulse Ox O2 Delivery O2 Flow Rate FiO2 04/12/18 12:00 98.1 100 18 118/86 100 Room Air 2.0 21 98.1 04/12/18 08:07 146/90 04/12/18 08:07 112 146/90 04/12/18 08:00 98.6 106 18 146/90 100 Room Air 2.0 21 98.6 04/12/18 08:00 122 04/12/18 07:15 104 18 Room Air 21 04/12/18 04:00 91 04/12/18 04:00 97.5 104 20 130/86 100 Room Air 97.5 04/12/18 00:00 110 04/12/18 00:00 98.7 110 20 142/85 97 Room Air 98.7 04/11/18 20:00 98.0 107 20 146/96 98 Room Air 98.0 04/11/18 20:00 97 04/11/18 19:05 98 18 Room Air 21 04/11/18 16:00 114 04/11/18 16:00 97.8 82 20 117/88 96 Nasal Cannula 2.0 28 97.8 Intake and Output 04/11/18 04/12/18 19:00 07:00 Intake Total 900 ml Balance 900 ml Intake Oral 900 ml # Voids 5 # Bowel Movements 1 General Appearance: WD/WN HEENT: normocephalic, atraumatic Respiratory/Chest: chest wall non-tender, lungs clear Cardiovascular: normal peripheral pulses, normal rate Abdomen: normal bowel sounds, soft, non tender Genitourinary: normal external genitalia Neurologic/Psychiatric: hha II-XII grossly normal Microbiology Date/Time Source Procedure Growth Status 04/10/18 15:06 Blood Blood Culture - Preliminary NO GROWTH AFTER 24 HOURS Resulted 04/10/18 15:06 Blood Blood Culture - Preliminary NO GROWTH AFTER 24 HOURS Resulted Current Medications Medications (Trade) Dose Ordered Sig/Alison Route PRN Reason Start Time Stop Time Status Last Admin Dose Admin Acetaminophen (Tylenol) 650 mg Q4H PRN ORAL T>100.5 04/10/18 20:15 05/10/18 20:14 Al Hydroxide/Mg Hydroxide (Mylanta II) 30 ml Q6H PRN ORAL dyspepsia 04/10/18 20:15 05/10/18 20:14 Albuterol/ Ipratropium (Albuterol/ Ipratropium) 3 ml Q4H PRN HHN Shortness of Breath 04/11/18 11:30 04/16/18 11:29 Amlodipine Besylate (Norvasc) 10 mg DAILY ORAL 04/11/18 09:00 05/11/18 08:59 04/12/18 08:07 Chlorpromazine (Thorazine) 25 mg Q6H PRN IM agitation 04/11/18 08:15 05/11/18 08:14 Dextrose (Dextrose 50%) 25 ml PRN IV Hypoglycemia 04/10/18 20:30 05/10/18 20:29 Dextrose (Dextrose 50%) 50 ml PRN IV hypoglycemia 04/10/18 20:30 05/10/18 20:29 Famotidine (Pepcid) 20 mg DAILY ORAL 04/12/18 09:00 05/12/18 08:59 04/12/18 08:07 Heparin Sodium (Porcine) (Heparin 5000 units/ml) 5,000 units EVERY 12 HOURS SUBQ 04/10/18 21:00 05/10/18 20:59 04/10/18 22:06 Insulin Aspart (NovoLOG) BEFORE MEALS AND HS SUBQ 04/10/18 21:00 05/10/18 20:59 04/11/18 06:09 Lisinopril (Prinivil) 20 mg DAILY ORAL 04/11/18 09:00 05/11/18 08:59 04/12/18 08:07 Methylprednisolone Sodium Succinate (Solu-MEDROL) 40 mg EVERY 8 HOURS IVP 04/11/18 14:00 05/11/18 13:59 04/11/18 13:08 Nicotine (Nicoderm) 1 patch Q24H TDERMAL 04/11/18 12:00 05/11/18 11:59 04/11/18 13:07 Olanzapine (ZyPREXA) 5 mg DAILY ORAL 04/11/18 09:00 05/11/18 08:59 04/12/18 08:06 Olanzapine (ZyPREXA) 10 mg BEDTIME ORAL 04/11/18 21:00 05/11/18 20:59 04/11/18 20:48 Ondansetron HCl (Zofran) 4 mg Q6H PRN IVP Nausea & Vomiting 04/10/18 20:15 05/10/18 20:14 Polyethylene Glycol (Miralax) 17 gm HSPRN PRN ORAL Constipation 04/10/18 20:15 05/10/18 20:14 Josue Dixon MD Apr 12, 2018 12:39
--- NOTE | 2018-04-12 12:40 | Cardiology Progress Note ---
Assessment/Plan Status: stable Assessment/Plan Hypertension COPD AMS 1) TTE reviewed, patient with severe systolic heart failure and valvular heart disease -Begin coreg 6.25 BID and titrate over few weeks -Losartan for afterload reduction -Re-evaluate heart function in 3 weeks -May need ICD -May need mitraclip if MR not improved on medication -Low dose lasix maintenance Subjective Cardiovascular: Reports: no symptoms Respiratory: Reports: no symptoms Gastrointestinal/Abdominal: Reports: no symptoms Genitourinary: Reports: no symptoms Subjective NO acute events, on room air. Vitals stable Objective Last 24 Hour Vital Signs Date Time Temp Pulse Resp B/P (MAP) Pulse Ox O2 Delivery O2 Flow Rate FiO2 04/12/18 12:00 98.1 100 18 118/86 100 Room Air 2.0 21 98.1 04/12/18 08:07 146/90 04/12/18 08:07 112 146/90 04/12/18 08:00 98.6 106 18 146/90 100 Room Air 2.0 21 98.6 04/12/18 08:00 122 04/12/18 07:15 104 18 Room Air 21 04/12/18 04:00 91 04/12/18 04:00 97.5 104 20 130/86 100 Room Air 97.5 04/12/18 00:00 110 04/12/18 00:00 98.7 110 20 142/85 97 Room Air 98.7 04/11/18 20:00 98.0 107 20 146/96 98 Room Air 98.0 04/11/18 20:00 97 04/11/18 19:05 98 18 Room Air 21 04/11/18 16:00 114 04/11/18 16:00 97.8 82 20 117/88 96 Nasal Cannula 2.0 28 97.8 General Appearance: no apparent distress EENT: PERRL/EOMI Neck: non-tender Rhythm: NSR Cardiovascular: diastolic murmur Respiratory/Chest: chest wall non-tender Abdomen: normal bowel sounds Extremities: normal range of motion 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 Apr 12, 2018 12:40
[2018-04-12 16:00] VITALS: BP 115/60
--- NOTE | 2018-04-12 17:15 | General Progress Note ---
Assessment/Plan Assessment/Plan schizophrenia agitation Thorazine Zyprexa the pt may not leave ama Subjective Date patient seen: Apr 12, 2018 Neurologic/Psychiatric: Reports: anxiety, depressed, emotional problems Allergies: Coded Allergies: NO KNOWN ALLERGIES (Unverified Allergy, Unknown, 02/07/18) Objective Last 24 Hour Vital Signs Date Time Temp Pulse Resp B/P (MAP) Pulse Ox O2 Delivery O2 Flow Rate FiO2 04/12/18 16:00 98 04/12/18 16:00 98.1 69 18 115/60 100 Room Air 2.0 21 98.1 04/12/18 12:00 98.1 100 18 118/86 100 Room Air 2.0 21 98.1 04/12/18 12:00 95 04/12/18 08:07 146/90 04/12/18 08:07 112 146/90 04/12/18 08:00 98.6 106 18 146/90 100 Room Air 2.0 21 98.6 04/12/18 08:00 122 04/12/18 07:15 104 18 Room Air 21 04/12/18 04:00 91 04/12/18 04:00 97.5 104 20 130/86 100 Room Air 97.5 04/12/18 00:00 110 04/12/18 00:00 98.7 110 20 142/85 97 Room Air 98.7 04/11/18 20:00 98.0 107 20 146/96 98 Room Air 98.0 04/11/18 20:00 97 04/11/18 19:05 98 18 Room Air 21 Intake and Output 04/11/18 04/12/18 19:00 07:00 Intake Total 900 ml Balance 900 ml Intake Oral 900 ml # Voids 5 # Bowel Movements 1 Height (Feet): 6 Height (Inches): 1.00 Weight (Pounds): 158 General Appearance: WD/WN, no apparent distress, alert, agitated, combative Calvin Caban M.D. Apr 12, 2018 17:15
[2018-04-12 20:00] VITALS: BP 164/125
[2018-04-12] MEDS: Carvedilol 6.25mg Tab ORAL SCH (21:03)
[2018-04-12] MEDS: OLANZapine 10mg tab ORAL SCH (21:03)
[2018-04-13] MEDS: Solu-MEDROL 40mg Inj IVP SCH ×3 (06:00→22:00)
[2018-04-13] MEDS: NovoLOG Insulin Flexpen SUBQ SCH ×4 (06:30→21:00)
[2018-04-13 08:00] VITALS: BP 119/78
[2018-04-13] MEDS: Heparin 5000 units/ml inj SUBQ SCH ×2 (09:00→21:00)
[2018-04-13] MEDS ORDERED: Losartan 25mg tab ORAL SCH (09:00)
[2018-04-13] MEDS: Carvedilol 6.25mg Tab ORAL SCH ×2 (09:04→21:00)
--- NOTE | 2018-04-13 09:40 | General Progress Note ---
Assessment/Plan Status: stable Assessment/Plan 1. Anemia of chronic disease. --> Continue to closely monitor. No evidence of hemolysis. Anemia of chronic disease, multiple medical problems, macrocytosis, rule out GI bleed. --> Further evaluation of occult blood. 2. Azotemia --> Closely monitor for improvement. 3. Neutrophilia, potentially secondary to reactive process. 4. Cardiomegaly with congestive heart failure. Evaluation with Cardiology team. 5. Hypertension, systolic blood pressure goal less than 140. 6. COPD history. Subjective Date patient seen: Apr 13, 2018 Allergies: Coded Allergies: NO KNOWN ALLERGIES (Unverified Allergy, Unknown, 02/07/18) All Systems: reviewed and negative except above Subjective Pt seen ambulating, no SOB or distress noted. Objective Last 24 Hour Vital Signs Date Time Temp Pulse Resp B/P (MAP) Pulse Ox O2 Delivery O2 Flow Rate FiO2 04/13/18 09:05 101 119/78 04/13/18 09:04 119/78 04/13/18 09:04 120 119/78 04/13/18 08:00 97.7 20 119/78 96 Room Air 97.7 04/12/18 21:03 120 164/125 04/12/18 20:00 112 04/12/18 20:00 98.5 120 18 164/125 97 Room Air 98.5 04/12/18 18:35 75 18 Room Air 21 04/12/18 16:00 98 04/12/18 16:00 98.1 69 18 115/60 100 Room Air 2.0 21 98.1 04/12/18 12:00 98.1 100 18 118/86 100 Room Air 2.0 21 98.1 04/12/18 12:00 95 Intake and Output 04/12/18 04/13/18 19:00 07:00 Intake Total 1000 ml Balance 1000 ml Other 1000 ml # Voids 3 5 Height (Feet): 6 Height (Inches): 1.00 Weight (Pounds): 158 General Appearance: WD/WN, no apparent distress EENT: PERRL/EOMI Neck: supple Cardiovascular: tachycardia Respiratory/Chest: normal breath sounds Abdomen: soft Hua Antony MD Apr 13, 2018 09:40
--- NOTE | 2018-04-13 10:00 | Pulmonology Progress Note ---
Assessment/Plan Problems: (1) CHF (congestive heart failure) (2) COPD exacerbation (3) Severe anemia (4) ATN (acute tubular necrosis) (5) Behavioral change (6) Diabetes mellitus Assessment/Plan anemia w/u in process titrate fio2 respiratory treatment adjust psych meds sliding scale diabetic meds dvt prophylaxis dc planning Subjective ROS Limited/Unobtainable: No Constitutional: Reports: no symptoms HEENT: Repors: no symptoms Respiratory: Reports: no symptoms Allergies: Coded Allergies: NO KNOWN ALLERGIES (Unverified Allergy, Unknown, 02/07/18) Objective Last 24 Hour Vital Signs Date Time Temp Pulse Resp B/P (MAP) Pulse Ox O2 Delivery O2 Flow Rate FiO2 04/13/18 09:05 101 119/78 04/13/18 09:04 119/78 04/13/18 09:04 120 119/78 04/13/18 08:00 97.7 20 119/78 96 Room Air 97.7 04/12/18 21:03 120 164/125 04/12/18 20:00 112 04/12/18 20:00 98.5 120 18 164/125 97 Room Air 98.5 04/12/18 18:35 75 18 Room Air 21 04/12/18 16:00 98 04/12/18 16:00 98.1 69 18 115/60 100 Room Air 2.0 21 98.1 04/12/18 12:00 98.1 100 18 118/86 100 Room Air 2.0 21 98.1 04/12/18 12:00 95 Intake and Output 04/12/18 04/13/18 19:00 07:00 Intake Total 1000 ml Balance 1000 ml Other 1000 ml # Voids 3 5 General Appearance: WD/WN HEENT: normocephalic, atraumatic Respiratory/Chest: chest wall non-tender, lungs clear Cardiovascular: normal peripheral pulses, normal rate Abdomen: normal bowel sounds, soft, non tender Genitourinary: normal external genitalia Extremities: no cyanosis 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 Complete 04/10/18 19:45 Rectum VRE Culture - Final Enterococcus Faecalis - Vre Complete Current Medications Medications (Trade) Dose Ordered Sig/Alison Route PRN Reason Start Time Stop Time Status Last Admin Dose Admin Acetaminophen (Tylenol) 650 mg Q4H PRN ORAL T>100.5 04/10/18 20:15 05/10/18 20:14 Al Hydroxide/Mg Hydroxide (Mylanta II) 30 ml Q6H PRN ORAL dyspepsia 04/10/18 20:15 05/10/18 20:14 Albuterol/ Ipratropium (Albuterol/ Ipratropium) 3 ml Q4H PRN HHN Shortness of Breath 04/11/18 11:30 04/16/18 11:29 Amlodipine Besylate (Norvasc) 10 mg DAILY ORAL 04/11/18 09:00 05/11/18 08:59 04/13/18 09:05 Carvedilol (Coreg) 6.25 mg EVERY 12 HOURS ORAL 04/12/18 21:00 05/12/18 20:59 04/13/18 09:04 Chlorpromazine (Thorazine) 25 mg Q6H PRN IM agitation 04/11/18 08:15 05/11/18 08:14 Dextrose (Dextrose 50%) 25 ml PRN IV Hypoglycemia 04/10/18 20:30 05/10/18 20:29 Dextrose (Dextrose 50%) 50 ml PRN IV hypoglycemia 04/10/18 20:30 05/10/18 20:29 Famotidine (Pepcid) 20 mg DAILY ORAL 04/12/18 09:00 05/12/18 08:59 04/13/18 09:05 Furosemide (Lasix) 20 mg DAILY ORAL 04/13/18 09:00 05/13/18 08:59 04/13/18 09:07 Heparin Sodium (Porcine) (Heparin 5000 units/ml) 5,000 units EVERY 12 HOURS SUBQ 04/10/18 21:00 05/10/18 20:59 04/10/18 22:06 Insulin Aspart (NovoLOG) BEFORE MEALS AND HS SUBQ 04/10/18 21:00 05/10/18 20:59 04/11/18 06:09 Losartan Potassium (Cozaar) 25 mg DAILY ORAL 04/13/18 09:00 05/13/18 08:59 04/13/18 09:04 Methylprednisolone Sodium Succinate (Solu-MEDROL) 40 mg EVERY 8 HOURS IVP 04/11/18 14:00 05/11/18 13:59 04/12/18 13:16 Nicotine (Nicoderm) 1 patch Q24H TDERMAL 04/11/18 12:00 05/11/18 11:59 04/12/18 13:17 Olanzapine (ZyPREXA) 5 mg DAILY ORAL 04/11/18 09:00 05/11/18 08:59 04/13/18 09:06 Olanzapine (ZyPREXA) 10 mg BEDTIME ORAL 04/11/18 21:00 05/11/18 20:59 04/12/18 21:03 Ondansetron HCl (Zofran) 4 mg Q6H PRN IVP Nausea & Vomiting 04/10/18 20:15 05/10/18 20:14 Polyethylene Glycol (Miralax) 17 gm HSPRN PRN ORAL Constipation 04/10/18 20:15 05/10/18 20:14 Josue Dixon MD Apr 13, 2018 10:00
--- NOTE | 2018-04-13 11:16 | General Progress Note ---
Assessment/Plan Status: stable, progressing Assessment/Plan schizophrenia agitation Thorazine Zyprexa the pt may not leave ama Subjective Date patient seen: Apr 13, 2018 Neurologic/Psychiatric: Reports: anxiety, depressed, emotional problems Allergies: Coded Allergies: NO KNOWN ALLERGIES (Unverified Allergy, Unknown, 02/07/18) Subjective the pt is disorganized and delusional he gets agitated easily Objective Last 24 Hour Vital Signs Date Time Temp Pulse Resp B/P (MAP) Pulse Ox O2 Delivery O2 Flow Rate FiO2 04/13/18 09:05 101 119/78 04/13/18 09:04 119/78 04/13/18 09:04 120 119/78 04/13/18 08:00 97.7 20 119/78 96 Room Air 97.7 04/12/18 21:03 120 164/125 04/12/18 20:00 112 04/12/18 20:00 98.5 120 18 164/125 97 Room Air 98.5 04/12/18 18:35 75 18 Room Air 21 04/12/18 16:00 98 04/12/18 16:00 98.1 69 18 115/60 100 Room Air 2.0 21 98.1 04/12/18 12:00 98.1 100 18 118/86 100 Room Air 2.0 21 98.1 04/12/18 12:00 95 Intake and Output 04/12/18 04/13/18 19:00 07:00 Intake Total 1000 ml Balance 1000 ml Other 1000 ml # Voids 3 5 Height (Feet): 6 Height (Inches): 1.00 Weight (Pounds): 158 General Appearance: WD/WN, alert, confused, agitated Calvin Caban M.D. Apr 13, 2018 11:16
[2018-04-13] MEDS ORDERED: LORazepam 1mg tab ORAL PRN ×2 (11:30→17:30)
[2018-04-13 12:00] VITALS: BP 131/83
--- NOTE | 2018-04-13 13:50 | Cardiology Report ---
APPROVED REPORT EXAM: Two-dimensional and M-mode echocardiogram with Doppler and color Doppler. INDICATION SOB M-Mode DIMENSIONS IVSd1.4 (0.7-1.1cm)Left Atrium (MM)4.1 (1.6-4.0cm) LVDd6.0 (3.5-5.6cm)Aortic Root3.3 (2.0-3.7cm) PWd1.4 (0.7-1.1cm)Aortic Cusp Exc.2.0 (1.5-2.0cm) LVDs4.9 (2.5-4.0cm) PWs1.6 cm Moderate left ventricular enlargement. Global left ventricular hypokinesis however better motion is noted in the proximal lateal wall Left ventricular ejection fraction estimated to be 25-30%. No evidence of left ventricular hypertrophy. Small anterior and posterior pericardial effusion. Severe left atrial enlargement by 2D. Mild right atrial enlargement by 2D. Focal aortic valve sclerosis with adequate cusp excursion. Thickened mitral valve leaflets with normal excursion. Mild mitral annulus and aortic root calcification. Pulmonic valve not well visualized. Normal tricuspid valve structure. IVC dilated at 2.6 cm non-collapsible with respiration indicate increased RA pressure. A color flow and spectral Doppler study was performed and revealed: Trace aortic regurgitation. Moderate mitral regurgitation. Mitral inflow velocities indicates possible pseudo normalization pattern implying significant left ventricular diastolic dysfunction. Mild tricuspid regurgitation. Tricuspid systolic velocities suggests peak right ventricular systolic pressure of 51 mmHg Consistent with moderate pulmonary hypertension. Pulmonic regurgitation present.
--- NOTE | 2018-04-13 14:15 | Cardiology Report ---
APPROVED REPORT EKG Measurement Heart [id number] Normal sinus rhythm Possible Left atrial enlargement Abnormal ECG
--- NOTE | 2018-04-13 15:58 | Cardiology Progress Note ---
Assessment/Plan Assessment/Plan Hypertension COPD AMS 1) TTE reviewed, patient with severe systolic heart failure and valvular heart disease -Continue coreg 6.25 BID and titrate over few weeks -> heart rate improved -Losartan for afterload reduction -Re-evaluate heart function in 3 months -May need ICD -May need mitraclip if MR not improved on medication -Low dose lasix maintenance -Dispo planning Subjective Cardiovascular: Reports: no symptoms Respiratory: Reports: no symptoms Gastrointestinal/Abdominal: Reports: no symptoms Genitourinary: Reports: no symptoms Subjective NO acute events, on room air. Vitals stable - heart rate improved. Agitated Objective Last 24 Hour Vital Signs Date Time Temp Pulse Resp B/P (MAP) Pulse Ox O2 Delivery O2 Flow Rate FiO2 04/13/18 12:35 86 20 Room Air 21 04/13/18 12:00 98.0 20 131/83 95 Room Air 98.0 04/13/18 09:05 101 119/78 04/13/18 09:04 119/78 04/13/18 09:04 120 119/78 04/13/18 08:00 97.7 20 119/78 96 Room Air 97.7 04/12/18 21:03 120 164/125 04/12/18 20:00 112 04/12/18 20:00 98.5 120 18 164/125 97 Room Air 98.5 04/12/18 18:35 75 18 Room Air 21 04/12/18 16:00 98 04/12/18 16:00 98.1 69 18 115/60 100 Room Air 2.0 21 98.1 General Appearance: no apparent distress EENT: PERRL/EOMI Neck: normal alignment Rhythm: NSR Cardiovascular: diastolic murmur Respiratory/Chest: lungs clear Abdomen: normal bowel sounds Extremities: normal range of motion 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 Complete 04/10/18 19:45 Rectum VRE Culture - Final Enterococcus Faecalis - Vre Complete Juan C Villanueva M.D. Apr 13, 2018 15:58
[2018-04-13 16:00] VITALS: BP 138/72
[2018-04-13] MEDS ORDERED: Mylanta II UD 30ml ORAL PRN (17:00)
[2018-04-13] MEDS ORDERED: Albuterol/Ipratropium 3ml neb HHN PRN (17:00)
[2018-04-13] MEDS ORDERED: OLANZapine 10mg tab ORAL SCH (18:00)
[2018-04-13 20:21] VITALS: BP 128/63
[2018-04-13] MEDS: Depakote 500mg tab ORAL SCH (21:00)
[2018-04-13] MEDS ORDERED: Depakote 500mg tab ORAL SCH (21:00)
[2018-04-13] MEDS ORDERED: Miralax 17gm pkt ORAL PRN (21:00)
[2018-04-13] MEDS: OLANZapine 10mg tab ORAL SCH (21:00)
[2018-04-14] VITALS: BP 136/65
[2018-04-14 04:35] VITALS: BP 130/80
[2018-04-14] MEDS: Solu-MEDROL 40mg Inj IVP SCH ×2 (05:21→14:00)
[2018-04-14] MEDS: NovoLOG Insulin Flexpen SUBQ SCH ×3 (05:22→16:30)
--- NOTE | 2018-04-14 07:42 | General Progress Note ---
Assessment/Plan Status: stable Assessment/Plan 1. Anemia of chronic disease. --> Continue to closely monitor. No evidence of hemolysis. Anemia of chronic disease, multiple medical problems, macrocytosis, rule out GI bleed. --> Further evaluation of occult blood. 2. Azotemia --> Closely monitor for improvement. 3. Neutrophilia, potentially secondary to reactive process. 4. Cardiomegaly with congestive heart failure. Evaluation with Cardiology team. 5. Hypertension, systolic blood pressure goal less than 140. 6. COPD history. Subjective Date patient seen: Apr 14, 2018 Allergies: Coded Allergies: NO KNOWN ALLERGIES (Unverified Allergy, Unknown, 02/07/18) All Systems: reviewed and negative except above Subjective No acute events, vitals stable - heart rate improved. Agitated and refusing am meds. Objective Last 24 Hour Vital Signs Date Time Temp Pulse Resp B/P (MAP) Pulse Ox O2 Delivery O2 Flow Rate FiO2 04/14/18 04:35 97.9 84 18 130/80 97 Room Air 97.9 04/14/18 00:00 98.1 83 18 136/65 97 Room Air 98.1 04/13/18 23:42 Room Air 04/13/18 21:25 96 18 Room Air 21 04/13/18 20:21 99.0 96 16 128/63 96 99.0 04/13/18 16:00 96.8 22 138/72 95 Room Air 96.8 04/13/18 12:35 86 20 Room Air 21 04/13/18 12:00 98.0 20 131/83 95 Room Air 98.0 04/13/18 09:05 101 119/78 04/13/18 09:04 119/78 04/13/18 09:04 120 119/78 04/13/18 08:00 97.7 20 119/78 96 Room Air 97.7 Intake and Output 04/13/18 04/14/18 19:00 07:00 Intake Total 810 ml 200 ml Output Total 100 ml Balance 810 ml 100 ml Intake Oral 810 ml 200 ml Output Urine Total 100 ml # Voids 5 # Bowel Movements 2 Height (Feet): 6 Height (Inches): 1.00 Weight (Pounds): 158 General Appearance: WD/WN, no apparent distress EENT: PERRL/EOMI Neck: supple Cardiovascular: normal peripheral pulses, normal rate Respiratory/Chest: chest wall non-tender, normal breath sounds Abdomen: soft Hua Antony MD Apr 14, 2018 07:42
[2018-04-14 08:00] VITALS: BP 139/79
[2018-04-14] MEDS: OLANZapine 10mg tab ORAL SCH (08:41)
[2018-04-14] MEDS: Carvedilol 6.25mg Tab ORAL SCH (08:43)
[2018-04-14] MEDS: Depakote 500mg tab ORAL SCH (08:43)
[2018-04-14] MEDS: Heparin 5000 units/ml inj SUBQ SCH (08:44)
[2018-04-14] MEDS ORDERED: Losartan 25mg tab ORAL SCH (09:00)
[2018-04-14 12:00] VITALS: BP 136/79
[2018-04-14 16:00] VITALS: BP 113/66
--- NOTE | 2018-04-14 16:12 | General Progress Note ---
Assessment/Plan Assessment/Plan schizophrenia agitation Thorazine Zyprexa the pt may not leave ama Subjective Date patient seen: Apr 14, 2018 Neurologic/Psychiatric: Reports: anxiety, depressed, emotional problems Allergies: Coded Allergies: NO KNOWN ALLERGIES (Unverified Allergy, Unknown, 02/07/18) Subjective the pt is disorganized and delusional he gets agitated easily. he wants to leave Objective Last 24 Hour Vital Signs Date Time Temp Pulse Resp B/P (MAP) Pulse Ox O2 Delivery O2 Flow Rate FiO2 04/14/18 12:00 98.1 97 18 136/79 97 Room Air 98.1 04/14/18 10:05 105 20 Room Air 21 04/14/18 08:44 80 139/79 04/14/18 08:43 80 139/79 04/14/18 08:41 130/80 04/14/18 08:00 98.0 100 19 139/79 98 Room Air 98.0 04/14/18 04:35 97.9 84 18 130/80 97 Room Air 97.9 04/14/18 00:00 98.1 83 18 136/65 97 Room Air 98.1 04/13/18 23:42 Room Air 04/13/18 21:25 96 18 Room Air 21 04/13/18 20:21 99.0 96 16 128/63 96 99.0 Intake and Output 04/13/18 04/14/18 19:00 07:00 Intake Total 810 ml 200 ml Output Total 100 ml Balance 810 ml 100 ml Intake Oral 810 ml 200 ml Output Urine Total 100 ml # Voids 5 # Bowel Movements 2 Height (Feet): 6 Height (Inches): 1.00 Weight (Pounds): 0 General Appearance: no apparent distress, alert, confused, agitated Calvin Caban M.D. Apr 14, 2018 16:12
--- NOTE | 2018-04-14 16:30 | Pulmonology Progress Note ---
Assessment/Plan Problems: (1) CHF (congestive heart failure) (2) COPD exacerbation (3) Severe anemia (4) ATN (acute tubular necrosis) (5) Behavioral change (6) Diabetes mellitus Assessment/Plan anemia w/u in process titrate fio2 respiratory treatment adjust psych meds sliding scale diabetic meds dvt prophylaxis dc planning Subjective Allergies: Coded Allergies: NO KNOWN ALLERGIES (Unverified Allergy, Unknown, 02/07/18) Objective Last 24 Hour Vital Signs Date Time Temp Pulse Resp B/P (MAP) Pulse Ox O2 Delivery O2 Flow Rate FiO2 04/14/18 12:00 98.1 97 18 136/79 97 Room Air 98.1 04/14/18 10:05 105 20 Room Air 21 04/14/18 08:44 80 139/79 04/14/18 08:43 80 139/79 04/14/18 08:41 130/80 04/14/18 08:00 98.0 100 19 139/79 98 Room Air 98.0 04/14/18 04:35 97.9 84 18 130/80 97 Room Air 97.9 04/14/18 00:00 98.1 83 18 136/65 97 Room Air 98.1 04/13/18 23:42 Room Air 04/13/18 21:25 96 18 Room Air 21 04/13/18 20:21 99.0 96 16 128/63 96 99.0 Intake and Output 04/13/18 04/14/18 19:00 07:00 Intake Total 810 ml 200 ml Output Total 100 ml Balance 810 ml 100 ml Intake Oral 810 ml 200 ml Output Urine Total 100 ml # Voids 5 # Bowel Movements 2 Current Medications Medications (Trade) Dose Ordered Sig/Alison Route PRN Reason Start Time Stop Time Status Last Admin Dose Admin Acetaminophen (Tylenol) 650 mg Q4H PRN ORAL T>100.5 04/13/18 17:00 05/10/18 16:59 Al Hydroxide/Mg Hydroxide (Mylanta II) 30 ml Q6H PRN ORAL dyspepsia 04/13/18 17:00 05/10/18 16:59 Albuterol/ Ipratropium (Albuterol/ Ipratropium) 3 ml Q4H PRN HHN Shortness of Breath 04/13/18 17:00 04/16/18 16:59 Amlodipine Besylate (Norvasc) 10 mg DAILY ORAL 04/14/18 09:00 05/11/18 08:59 04/14/18 08:44 Carvedilol (Coreg) 6.25 mg EVERY 12 HOURS ORAL 04/13/18 21:00 05/12/18 20:59 04/14/18 08:43 Chlorpromazine (Thorazine) 25 mg Q6H PRN IM agitation 04/13/18 17:00 05/11/18 16:59 Dextrose (Dextrose 50%) 25 ml PRN IV Hypoglycemia 04/13/18 17:00 05/10/18 20:29 Dextrose (Dextrose 50%) 50 ml PRN IV hypoglycemia 04/13/18 17:00 05/10/18 20:29 Divalproex Sodium (Depakote) 750 mg EVERY 12 HOURS ORAL 04/14/18 21:00 05/14/18 20:59 Famotidine (Pepcid) 20 mg DAILY ORAL 04/14/18 09:00 05/12/18 08:59 04/14/18 08:44 Furosemide (Lasix) 20 mg DAILY ORAL 04/14/18 09:00 05/13/18 08:59 04/14/18 08:42 Heparin Sodium (Porcine) (Heparin 5000 units/ml) 5,000 units EVERY 12 HOURS SUBQ 04/13/18 21:00 05/10/18 20:59 Insulin Aspart (NovoLOG) BEFORE MEALS AND HS SUBQ 04/13/18 21:00 05/10/18 20:59 Lorazepam (Ativan) 1 mg Q6H PRN ORAL For Anxiety 04/13/18 17:30 04/20/18 11:29 Losartan Potassium (Cozaar) 25 mg DAILY ORAL 04/14/18 09:00 05/13/18 08:59 04/14/18 08:41 Methylprednisolone Sodium Succinate (Solu-MEDROL) 40 mg EVERY 8 HOURS IVP 04/13/18 22:00 05/11/18 13:59 Nicotine (Nicoderm) 1 patch Q24H TDERMAL 04/14/18 12:00 05/11/18 11:59 04/14/18 11:57 Olanzapine (ZyPREXA) 10 mg Q12HR ORAL 04/14/18 21:00 05/14/18 20:59 Ondansetron HCl (Zofran) 4 mg Q6H PRN IVP Nausea & Vomiting 04/13/18 17:00 05/10/18 16:59 Polyethylene Glycol (Miralax) 17 gm HSPRN PRN ORAL Constipation 04/13/18 21:00 05/10/18 20:59 Josue Dixon MD Apr 14, 2018 16:30
--- NOTE | 2018-04-14 17:38 | Cardiology Progress Note ---
Assessment/Plan Status: stable, progressing Assessment/Plan Hypertension COPD AMS TTE reviewed, patient with severe systolic heart failure and valvular heart disease -Continue coreg 6.25 BID and titrate over few weeks -> heart rate improved -Losartan for afterload reduction -Re-evaluate heart function in 3 months -May need ICD -May need mitraclip if MR not improved on medication -Low dose lasix maintenance for elevated filling pressures -Anemia work up - Subjective Cardiovascular: Reports: no symptoms Respiratory: Reports: no symptoms Gastrointestinal/Abdominal: Reports: no symptoms Genitourinary: Reports: no symptoms Subjective NO acute events, on room air. Vitals stable - heart rate improved. Agitated Objective Last 24 Hour Vital Signs Date Time Temp Pulse Resp B/P (MAP) Pulse Ox O2 Delivery O2 Flow Rate FiO2 04/14/18 16:00 97.9 86 22 113/66 98 Room Air 97.9 04/14/18 12:00 98.1 97 18 136/79 97 Room Air 98.1 04/14/18 10:05 105 20 Room Air 21 04/14/18 08:44 80 139/79 04/14/18 08:43 80 139/79 04/14/18 08:41 130/80 04/14/18 08:00 98.0 100 19 139/79 98 Room Air 98.0 04/14/18 04:35 97.9 84 18 130/80 97 Room Air 97.9 04/14/18 00:00 98.1 83 18 136/65 97 Room Air 98.1 04/13/18 23:42 Room Air 04/13/18 21:25 96 18 Room Air 21 04/13/18 20:21 99.0 96 16 128/63 96 99.0 General Appearance: no apparent distress EENT: PERRL/EOMI Neck: non-tender Rhythm: NSR Cardiovascular: normal peripheral pulses, diastolic murmur Respiratory/Chest: chest wall non-tender Abdomen: non tender Extremities: normal range of motion Neurologic: alert Intake and Output 04/13/18 04/14/18 19:00 07:00 Intake Total 810 ml 200 ml Output Total 100 ml Balance 810 ml 100 ml Intake Oral 810 ml 200 ml Output Urine Total 100 ml # Voids 5 # Bowel Movements 2 Juan C Villanueva M.D. Apr 14, 2018 17:38
[2018-04-14] MEDS ORDERED: OLANZapine 10mg tab ORAL SCH (21:00)
--- NOTE | 2018-04-15 11:01 | Discharge Summary ---
Discharge Summary Discharge Summary _ DATE OF ADMISSION: 04/10/2018 DATE OF DISCHARGE: 04/14/2018 REASON FOR ADMISSION: , 72 years old male with past medical history of hypertension , CHF, COPD , current smoker ,anemia ,diabetes, psychiatric disorder, was brought to emergency room by paramedics from the care home facility. He was agitated at the care home facility . Pulse oximetry was only 88% on buffing machine operator semiautomatic arrival. In ED ABG revealed hypoxemia and hypercapnia. Patient required placement of supplemental oxygen, and hypoxemia subsequently resolved. At that time patient was only responsive to his name . Vital signs were stable, patient was afebrile. Laboratory workup revealed no leukocytosis, evidence of marked ascites anemia, minimally elevated troponin, proBNP 623. Chest x-ray showed diffusely increased interstitial markings possibly related to pulmonary vascular congestion versus interstitial pneumonitis. Cardiomegaly. Urinalysis with evidence of pyuria but only few bacteria. Patient was placed on supplemental oxygen , given nebulizing treatment , loading dose of IV steroids started . The patient was admitted for further management with diagnosis of acute hypoxemia due to COPD exacerbation, Acute encephalopathy and chronic psychiatric disorder) probably due to hypoxia, COPD exacerbation, Hypertension, CHF, Microcytic anemia, Diabetes mellitus, Nicotine dependency CONSULTANTS: plasma processing centrifuge operator Dr. Villanueva sales compensation analyst/oncologist Dr. Antony psychiatrist [facility] COURSE: Patient admitted to telemetry floor. Supplemental oxygen provided as needed to keep pulse oximetry above 92%. Pulmonary toilet provided as needed Patient started on the IV steroids with fast tapering down. Unable to obtain sputum culture. Patient was counseled on smoking cessation . Patient started on nicotine patch. Follow-up chest x-ray demonstrated improved interstitial congestion with minimal residual, over 2 days EKG revealed no acute ischemic changes .Troponin only minimally elevated, no cardiac complaints, likely due to CHF. Cardiology consult was requested . Echocardiogram revealed global left ventricular hypokinesis. Left ventricular ejection fraction estimated to be 25-30%. No evidence of left ventricular hypertrophy. Moderate mitral regurgitation. Mitral inflow velocity indicating possible pseudonormalization pattern , implying significant left ventricular diastolic dysfunction. Mild tricuspid regurgitation. Right ventricular systolic pressure of 51, consistent with moderate pulmonary hypertension. Rn Eligibility personally reviewed echocardiogram and stated the patient had severe systolic heart failure and valvular heart disease. Anti-failure regimen included beta tesha, ARB and low dose of diuretic . ARB was added for afterload reduction. Rn Eligibility recommended to titrate beta tesha over the next few weeks. Low-dose of Lasix maintenance was added due to elevated filling pressures. Rn Eligibility recommended to reevaluate heart function in 3 months . Patient may need ICD . Patient may need mitral clip if mitral regurgitation not improved with anti-failure medication regimen. Lipid panel was within normal limits. Blood pressure was stable with current regimen. Inbound Sales Manager closely followed and stated that anemia was due to anemia of chronic disease. Hemoglobin and hematocrit were closely monitored with goal to keep hemoglobin above 7. Patient will need close monitoring of hemoglobin and hematocrit monitoring at the care home facility and check the stool for occult blood 3. Patient was counseled on smoking cessation. Patient started on e nicotine patch. Blood sugar was managed with sliding scale insulin , remained stable. DVT and GI prophylaxis provided. Psychiatrist closely followed and diagnosed patient with schizophrenia and agitation Psychiatric medication regimen optimized as per psychiatric direction. Supportive care provided. Patient clinically improved, no chest pain, no SOB. Pulse oximetry stable on room air, behavior controlled. Patient was stable for discharge back to care home facility for continuation of FINAL DIAGNOSES: Acute hypoxemia secondary to COPD exacerbation, resolved Acute encephalopathy on chronic psychiatric disorder COPD exacerbation CHF with severe systolic heart failure Valvular heart disease with moderate mitral regurgitation Hypertension Anemia of chronic disease Diabetes mellitus Nicotine dependency with withdrawal Schizophrenia Agitation DISCHARGE MEDICATIONS: See Medication Reconciliation list. DISCHARGE INSTRUCTIONS: Patient was discharged to care home facility. Follow up with medical doctor at the facility. Repeat echocardiogram in 3 months . Patient may need ICD and mitral clipping if no improvement on ECHO Carmen Wick NP Apr 15, 2018 11:01
== END 2018-04-14 18:55 | DRG 190 ==
LOC: EDBD 14:25 → EMR 15:00 → 2E 16:16 → EDBEDREQ 19:10 → 2E 20:50 → 4W 04-13 16:35
DX: J44.1 Chronic obstructive pulmonary disease with (acute) exacerbation (principal); G93.40 Encephalopathy, unspecified; N17.0 Acute kidney failure with tubular necrosis; I50.22 Chronic systolic (congestive) heart failure; F17.203 Nicotine dependence unspecified, with withdrawal; R09.02 Hypoxemia; I11.0 Hypertensive heart disease with heart failure; I34.0 Nonrheumatic mitral (valve) insufficiency; D63.8 Anemia in other chronic diseases classified elsewhere; E11.9 Type 2 diabetes mellitus without complications; F20.9 Schizophrenia, unspecified; R45.1 Restlessness and agitation; I27.20 Pulmonary hypertension, unspecified
CPT/HCPCS: 36415; 36600; 71045; 80053; 80061; 81003; 82550; 82728; 82746; 82803; 82962; 83090; 83540; 83550; 83605; 83615; 83880; 84238; 84484; 85007; 85025; 85044; 85060; 85610; 85730; 87040; 87081; 93005; 93306; 94640; 94664; 99285; J1815